=== PATIENT | female | born 1965 | race Caucasian/White ===

== ENCOUNTER 2016-10-24 01:38 | Emergency (ER) | payer OTHER ==
[2016-10-24 01:46] VITALS: TEMP 98.6
[2016-10-24] MEDS ORDERED: SODIUM CHLORIDE 0.9% 1,000 ML IV STA (02:02)
[2016-10-24] MEDS ORDERED: MORPHINE SULFATE 4 MG/ML SYRINGE IV STA (02:02)
[2016-10-24] MEDS ORDERED: ONDANSETRON 4 MG/2 ML VIAL IVP STA (02:02)
--- NOTE | 2016-10-24 02:13 | ED ---
General Adult HPI - General Chief complaint: Abdominal Pain Stated complaint: Rib/Back/Shoulder Pain Time Seen by Provider: 10/24/16 01:57 Source: patient, RN notes reviewed Mode of arrival: ambulatory Limitations: no limitations - History of Present Illness Initial comments: 51-year-old female presents emergency Department chief complaint son onset of left-sided pain. Patient states that started a few hours ago when she tried to her sleep. Patient states it's starts along her lower rib region and upper stomach on the left. Patient states that she has had some pain that radiates up and down into her abdomen. Patient states that she has some nausea but has had no episodes of vomiting. Patient states that she tries to urinate states she has no urine output. Patient denies any dysuria, fever, chills. Patient states that she had a prior hysterectomy. Patient states nothing seems to make the pain feel better or worse at this time. - Related Data Home Medications Medication Instructions Recorded Confirmed Baclofen 10 mg PO HS 08/02/14 05/20/16 Pregabalin [Lyrica] 150 mg PO BID 10/01/14 05/20/16 Butalb/Acetaminophen/Caffeine 1 - 2 each PO Q4HR 06/22/15 05/20/16 [Fioricet 50-300-40 mg Capsule] oxyCODONE-APAP 10-325MG [Percocet 1 tab PO DAILY 02/03/16 05/20/16 10-325 mg] Albuterol Inhaler [Ventolin Hfa 2 puff INHALATION RT-Q4H PRN 05/20/16 05/20/16 Inhaler] Propranolol LA [Inderal LA] 80 mg PO DAILY 05/20/16 05/20/16 Triamcinolone 0.1% Cream [Kenalog] 1 applic TOPICAL BID 05/20/16 05/20/16 Vilazodone Hydrochloride [Viibryd] 10 mg PO DAILY 05/20/16 05/20/16 Previous Rx's Medication Instructions Recorded ALPRAZolam [Xanax] 0.5 mg PO Q8HR PRN #10 tablet 10/20/14 Hydrocodone/Acetaminophen [[place] 1 each PO Q6HR PRN #20 tab 05/20/16 5-325] Allergies Allergy/AdvReac Type Severity Reaction Status Date / Time No Known Allergies Allergy Verified 10/24/16 01:45 Review of Systems ROS Statement: Those systems with pertinent positive or pertinent negative responses have been documented in the HPI. ROS Other: All systems not noted in ROS Statement are negative. Past Medical History Past Medical History: Fibromyalgia, Neurologic Disorder, Osteoarthritis (OA), Skin Disorder, Thyroid Disorder Additional Past Medical History / Comment(s): Hx Psoriasis, arthritis, MULTIPLE SCLEROSIS, VERTIGO History of Any Multi-Drug Resistant Organisms: None Reported Past Surgical History: Hysterectomy Additional Past Surgical History / Comment(s): Hx. Partial thyroidectomy Past Psychological History: Anxiety, Depression Smoking Status: Former smoker Past Alcohol Use History: None Reported Past Drug Use History: None Reported - Past Family History Mother Family Medical History: Cancer General Exam Limitations: no limitations General appearance: alert, in no apparent distress Head exam: Present: atraumatic, normocephalic, normal inspection Eye exam: Present: normal appearance, PERRL, EOMI. Absent: scleral icterus, conjunctival injection, periorbital swelling ENT exam: Present: normal exam, normal oropharynx, mucous membranes moist, TM's normal bilaterally, normal external ear exam Neck exam: Present: normal inspection, full ROM. Absent: tenderness, meningismus, lymphadenopathy Respiratory exam: Present: normal lung sounds bilaterally, chest wall tenderness. Absent: respiratory distress, wheezes, rales, rhonchi, stridor Cardiovascular Exam: Present: regular rate, normal rhythm, normal heart sounds. Absent: systolic murmur, diastolic murmur, rubs, gallop, clicks GI/Abdominal exam: Present: soft, tenderness (Mild tenderness mid abdomen, left- sided), normal bowel sounds. Absent: distended, guarding, rebound, rigid Back exam: Absent: CVA tenderness (R), CVA tenderness (L) Skin exam: Present: warm, dry, intact, normal color. Absent: rash Course Vital Signs 10/24/16 10/24/16 01:43 03:13 Temperature 98.6 F Pulse Rate 82 73 Respiratory 20 18 Rate Blood Pressure 111/63 111/58 O2 Sat by Pulse 98 100 Oximetry Medical Decision Making - Medical Decision Making 51-year-old female presents emergency department for left-sided abdominal pain. Patient CT of the chest abdomen pelvis shows constipation. She does have some emphysematous type changes and enteritis type changes. Patient states that she's been trying to eat more healthy eating try seeds and increase fiber. She states that she only has small brown formed stool. Patient states that she knew she was constipated is correlated on CT. - Lab Data Result diagrams: 10/24/16 02:15 10/24/16 02:15 Lab Results 10/24/16 10/24/16 10/24/16 Range/Units 02:15 02:15 02:15 WBC 8.5 (3.8-10.6) k/uL RBC 4.20 (3.80-5.40) m/uL Hgb 13.0 (11.4-16.0) gm/dL Hct 40.2 (34.0-46.0) % MCV 95.7 (80.0-100.0) fL MCH 31.0 (25.0-35.0) pg MCHC 32.4 (31.0-37.0) g/dL RDW 12.3 (11.5-15.5) % Plt Count 249 (150-450) k/uL Neutrophils % 80 % Lymphocytes % 12 % Monocytes % 5 % Eosinophils % 2 % Basophils % 1 % Neutrophils # 6.8 (1.3-7.7) k/uL Lymphocytes # 1.0 (1.0-4.8) k/uL Monocytes # 0.4 (0-1.0) k/uL Eosinophils # 0.1 (0-0.7) k/uL Basophils # 0.0 (0-0.2) k/uL Sodium 141 (137-145) mmol/L Potassium 4.1 (3.5-5.1) mmol/L Chloride 104 (98-107) mmol/L Carbon Dioxide 26 (22-30) mmol/L Anion Gap 11 mmol/L BUN 15 (7-17) mg/dL Creatinine 0.60 (0.52-1.04) mg/dL Est GFR (MDRD) Af Amer >60 (>60 ml/min/1.73 sqM) Est GFR (MDRD) Non-Af >60 (>60 ml/min/1.73 sqM) Glucose 96 (74-99) mg/dL Calcium 9.2 (8.4-10.2) mg/dL Total Bilirubin 0.4 (0.2-1.3) mg/dL AST 29 (14-36) U/L ALT 54 H (9-52) U/L Alkaline Phosphatase 99 (38-126) U/L Troponin I <0.012 (0.000-0.034) ng/mL Total Protein 6.9 (6.3-8.2) g/dL Albumin 4.1 (3.5-5.0) g/dL Amylase 56 (30-110) U/L Lipase 207 (23-300) U/L Urine Color Urine Appearance (Clear) Urine pH (5.0-8.0) Ur Specific [place] (1.001-1.035) Urine Protein (Negative) Urine Glucose (UA) (Negative) Urine Ketones (Negative) Urine Blood (Negative) Urine Nitrate (Negative) Urine Bilirubin (Negative) Urine Urobilinogen (<2.0) mg/dL Ur Leukocyte Esterase (Negative) Urine RBC (0-5) /hpf Urine WBC (0-5) /hpf Ur Squamous Epith Cells (0-4) /hpf Urine Bacteria (None) /hpf Urine Mucus (None) /hpf 10/24/16 Range/Units 02:15 WBC (3.8-10.6) k/uL RBC (3.80-5.40) m/uL Hgb (11.4-16.0) gm/dL Hct (34.0-46.0) % MCV (80.0-100.0) fL MCH (25.0-35.0) pg MCHC (31.0-37.0) g/dL RDW (11.5-15.5) % Plt Count (150-450) k/uL Neutrophils % % Lymphocytes % % Monocytes % % Eosinophils % % Basophils % % Neutrophils # (1.3-7.7) k/uL Lymphocytes # (1.0-4.8) k/uL Monocytes # (0-1.0) k/uL Eosinophils # (0-0.7) k/uL Basophils # (0-0.2) k/uL Sodium (137-145) mmol/L Potassium (3.5-5.1) mmol/L Chloride (98-107) mmol/L Carbon Dioxide (22-30) mmol/L Anion Gap mmol/L BUN (7-17) mg/dL Creatinine (0.52-1.04) mg/dL Est GFR (MDRD) Af Amer (>60 ml/min/1.73 sqM) Est GFR (MDRD) Non-Af (>60 ml/min/1.73 sqM) Glucose (74-99) mg/dL Calcium (8.4-10.2) mg/dL Total Bilirubin (0.2-1.3) mg/dL AST (14-36) U/L ALT (9-52) U/L Alkaline Phosphatase (38-126) U/L Troponin I (0.000-0.034) ng/mL Total Protein (6.3-8.2) g/dL Albumin (3.5-5.0) g/dL Amylase (30-110) U/L Lipase (23-300) U/L Urine Color Yellow Urine Appearance Cloudy H (Clear) Urine pH 6.0 (5.0-8.0) Ur Specific [place] 1.014 (1.001-1.035) Urine Protein Negative (Negative) Urine Glucose (UA) Negative (Negative) Urine Ketones Negative (Negative) Urine Blood Negative (Negative) Urine Nitrate Negative (Negative) Urine Bilirubin Negative (Negative) Urine Urobilinogen <2.0 (<2.0) mg/dL Ur Leukocyte Esterase Negative (Negative) Urine RBC 2 (0-5) /hpf Urine WBC 1 (0-5) /hpf Ur Squamous Epith Cells 4 (0-4) /hpf Urine Bacteria Few H (None) /hpf Urine Mucus Rare H (None) /hpf Disposition Clinical Impression: Abdominal pain, Constipation Disposition: HOME SELF-CARE Condition: Stable Instructions: Constipation (ED) Additional Instructions: Please return to the Emergency Department if symptoms worsen or any other concerns. Time of Disposition: 04:11
[2016-10-24 02:23] LABS: Basophils % (A) 1 %; CH 32.4; Eosinophils # (A) 0.1 k/uL (0-0.7); Eosinophils % (A) 2 %; HCT 40.2 % (34.0-46.0); Luc # (Auto) 0.09; Luc % (Auto) 1; Lymphocytes % (A) 12 %; MCHC 32.4 g/dL (31.0-37.0); MCV 95.7 fL (80.0-100.0); Mean Platelet Volume 7.2; Monocytes # (A) 0.4 k/uL (0-1.0); Monocytes % (A) 5 %; Neutrophils # (A) 6.8 k/uL (1.3-7.7); Neutrophils % (A) 80 %; RDW 12.3 % (11.5-15.5); WBC 8.5 k/uL (3.8-10.6); WBC (Perox) 8.93
[2016-10-24 02:24] LABS: Appearance,Urine Cloudy (Clear); Bacteria,Urine Few /hpf; Bilirubin,Urine Negative (Negative); Glucose,Urine (UA) Negative (Negative); Ketones,Urine Negative (Negative); Leukocyte Esterase,Urine Negative (Negative); Mucus,Urine Rare /hpf; Nitrite,Urine Negative (Negative); Particle Count 2454; Protein,Urine Negative (Negative); RBC,Urine 2 /hpf (0-5); Specific Gravity,Urine 1.014 (1.001-1.035); Squamous Epithelial Cell,Urine 4 /hpf (0-4); UA Billing (MACRO vs. MICRO) MICRO; Urobilinogen,Urine <2.0 mg/dL (<2.0); WBC,Urine 1 /hpf (0-5)
[2016-10-24 02:31] LABS: ALT 54 U/L (9-52); AST 29 U/L (14-36); Alkaline Phosphatase 99 U/L (38-126); Amylase 56 U/L (30-110); Anion Gap 11 mmol/L; Blood Urea Nitrogen 15 mg/dL (7-17); Calcium 9.2 mg/dL (8.4-10.2); Carbon Dioxide 26 mmol/L (22-30); Chloride 104 mmol/L (98-107); Glucose 96 mg/dL (74-99); Non-African American GFR(MDRD) >60 (>60 ml/min/1.73 sqM); Potassium 4.1 mmol/L (3.5-5.1); Sodium 141 mmol/L (137-145); Total Bilirubin 0.4 mg/dL (0.2-1.3); Total Protein 6.9 g/dL (6.3-8.2)
[2016-10-24] MEDS ORDERED: RX INFO: IV CONTRAST WAS GIVEN 1 EACH MISC MISCELLANE PRN (02:48)
[2016-10-24] MEDS ORDERED: KETOROLAC 30 MG/ML 1 ML VIAL IVP STA (02:50)
--- NOTE | 2016-10-24 03:08 | XR ---
EXAMINATION TYPE: XR chest 2V DATE OF EXAM: 10/24/2016 2:34 AM COMPARISON: 10/20/2014 HISTORY: Abdominal pain history of hysterectomy abdominal and chest and back pain. TECHNIQUE: Frontal and lateral views of the chest are obtained. FINDINGS: There is no focal air space opacity, pleural effusion, or pneumothorax seen. The cardiac silhouette size is within normal limits. The osseous structures are intact. IMPRESSION: 1. No acute cardiopulmonary process. 2. No significant interval change.
--- NOTE | 2016-10-24 03:10 | XR ---
EXAMINATION TYPE: XR KUB DATE OF EXAM: 10/24/2016 2:34 AM CLINICAL HISTORY: Hysterectomy, abdominal and chest and back pain TECHNIQUE: 2 upright radiographs of abdomen were obtained in frontal projection. COMPARISON: 02/03/2016 FINDINGS: Scattered gas is seen in non-distended small bowel loops. Moderate fecal material is noted in the colon. There is no visceromegaly, pneumoperitoneum, or abnormal calcification appreciated. The lung bases are clear and the osseous structures are intact. IMPRESSION: Moderate amount of fecal material is noted in the colon. Overall nonobstructive bowel gas pattern.
[2016-10-24 03:14] VITALS: RESP 18
--- NOTE | 2016-10-24 03:55 | CT ---
EXAMINATION TYPE: CT angio chest DATE OF EXAM: 10/24/2016 3:12 AM COMPARISON: NONE HISTORY: Left sided chest abdominal pain CT DLP: 530.30 mGycm Automated exposure control for dose reduction was used. CONTRAST: CTA scan of the thorax is performed with IV Contrast, patient injected with 100 mL of Omnipaque 350, pulmonary embolism protocol. . FINDINGS: PULMONARY ARTERIES: There is slightly limited opacification of peripheral pulmonary arterial branches and also central pulmonary arterial branches with contrast with multiple artifacts. No significant f illing defects are noted in the main pulmonary arteries and central branches to represent acute pulmo nary embolism. LUNGS: Mild bibasal lung atelectatic changes are noted. No definite focal pneumonia is noted. Mild em physematous changes are present in the lungs. There is no pleural effusion or pneumothorax seen. The tracheobronchial tree is patent. MEDIASTINUM: . There are no greater than 1 cm hilar or mediastinal lymph nodes. No pericardial eff usion is seen. Mild atherosclerotic calcification is noted in the aortic arch. No significant ectatic changes are noted in the thoracic aorta. OTHER: No additional significant abnormality is seen. IMPRESSION: NO DEFINITE EVIDENCE OF ACUTE PULMONARY EMBOLISM IN THIS SLIGHTLY LIMITED STUDY. Mild bibasilar lung atelectasis. Mild emphysematous changes in the lungs. No focal lung consolidation .
--- NOTE | 2016-10-24 04:06 | CT ---
EXAMINATION TYPE: CT abdomen pelvis w con DATE OF EXAM: 10/24/2016 3:46 AM COMPARISON: NONE HISTORY: Left sided chest and abdominal pain CT DLP: 530.30 mGycm Automated exposure control for dose reduction was used. TECHNIQUE: Helical acquisition of images was performed from the lung bases through the pelvis. CONTRAST: Performed without Oral Contrast and with IV Contrast, patient injected with 100 mL of Omnipaque 350. FINDINGS: LUNG BASES: Mild basilar lung atelectasis is noted bilaterally. LIVER/GB: No significant abnormality is appreciated. PANCREAS: No significant abnormality is seen. SPLEEN: No significant abnormality is seen. ADRENALS: No significant abnormality is seen. KIDNEYS: No significant abnormality is seen. RETROPERITONEAL ADENOPATHY: None visualized Mild atherosclerotic calcification is noted in the abdominal aorta. REPRODUCTIVE ORGANS: Uterus is not well visualized. Uterus is probably surgically absent. Cystic bruce ges are noted in bilateral ovaries. There is 2.3 cm cyst in the right ovary and 2.4 cm cyst in the le ft ovary. URINARY BLADDER: No significant abnormality is seen. PELVIC ADENOPATHY: None visualized. OSSEOUS STRUCTURES: No significant abnormality is seen. BOWEL: Visualized appendix appears grossly unremarkable in the axial image 68 and coronal image 32. Stomach appears grossly unremarkable. Small bowel loops showed mild fluid distention with possible mi ld ileus and enteritis changes. Moderate to large amount of fecal material is noted in the colon and rectum and patient is constipate d. OTHER: IMPRESSION: 1. NO SIGNIFICANT ACUTE ABNORMALITY IS NOTED IN THE ABDOMEN AND PELVIS. 2. BILATERAL OVARIAN CYSTS. AN ULTRASOUND STUDY WOULD BE HELPFUL IF CLINICALLY INDICATED. UTERUS IS P ROBABLY SURGICALLY ABSENT. 3. POSSIBLE ENTERITIS CHANGES WITH ILEUS IN THE SMALL BOWEL LOOPS. 4. PATIENT IS CONSTIPATED. 5. APPENDIX SHOWED NO SIGNIFICANT INFLAMMATION.
[2016-10-24] MEDS ORDERED: MAGNESIUM CITRATE 296 ML BOTTLE PO ONE (04:11)
[2016-10-24 04:20] VITALS: BP 108/57; PULSE 71
== END 2016-10-24 04:19 | disposition home or self-care (01) ==
LOC: EC 01:38
DX: K59.00 Constipation, unspecified (principal); G35 Multiple sclerosis; M79.7 Fibromyalgia; M19.90 Unspecified osteoarthritis, unspecified site; L40.9 Psoriasis, unspecified; F32.9 Major depressive disorder, single episode, unspecified; F41.9 Anxiety disorder, unspecified; Z79.891 Long term (current) use of opiate analgesic; Z79.899 Other long term (current) drug therapy; Z87.891 Personal history of nicotine dependence
CPT/HCPCS: 36415; 80053; 82150; 83690; 84484; 85025; 81001; 71020; 74000; 71275; 74177; 99284; 96374; 96375 ×2; 96361; J2270; Q9967; J2405; J1885

== ENCOUNTER → 2018-03-02 | Outpatient (CLI) | payer OTHER ==
[2018-03-02 17:38] LABS: Basophils % (A) 0 %; Eosinophils % (A) 0 %; HCT 39.4 % (34.0-46.0); HGB 13.1 gm/dL (11.4-16.0); Lymphocytes # (A) 1.3 k/uL (1.0-4.8); Lymphocytes % (A) 17 %; MCHC 33.4 g/dL (31.0-37.0); Mean Platelet Volume 7.3; Monocytes # (A) 0.4 k/uL (0-1.0); Monocytes % (A) 5 %; Neutrophils # (A) 5.6 k/uL (1.3-7.7); Neutrophils % (A) 76 %; Platelet Count 232 k/uL (150-450); RBC 4.24 m/uL (3.80-5.40); RDW 12.8 % (11.5-15.5); WBC 7.4 k/uL (3.8-10.6)
[2018-03-02 17:45] LABS: ALT 29 U/L (9-52); AST 22 U/L (14-36); Albumin 4.6 g/dL (3.5-5.0); Alkaline Phosphatase 73 U/L (38-126); Anion Gap 17 mmol/L; Blood Urea Nitrogen 19 mg/dL (7-17); Calcium 9.5 mg/dL (8.4-10.2); Carbon Dioxide 26 mmol/L (22-30); Chloride 103 mmol/L (98-107); Glucose 92 mg/dL (74-99); Potassium 3.7 mmol/L (3.5-5.1); Sodium 146 mmol/L (137-145); Total Bilirubin 0.2 mg/dL (0.2-1.3); Total Protein 7.1 g/dL (6.3-8.2)
[2018-03-03 01:03] LABS: Vitamin D 25 Hydroxy 20.3 ng/mL (30.0-100.0)
== END | disposition home or self-care (01) ==
LOC: LABWHC1 16:42
PROVIDERS: ATTEND Nurse Practitioner Acute Care
DX: E55.9 Vitamin D deficiency, unspecified (principal); E03.9 Hypothyroidism, unspecified; R53.82 Chronic fatigue, unspecified; Z51.81 Encounter for therapeutic drug level monitoring
CPT/HCPCS: 36415; 80053; 82306; 82607; 84439; 84443; 84481; 85025

== ENCOUNTER → 2018-03-21 | Outpatient (CLI) | payer MEDICARE, OTHER ==
--- NOTE | 2018-03-23 01:09 | MR ---
EXAMINATION TYPE: MR brain/cspine wo/w DATE OF EXAM: 03/21/2018 COMPARISON: 06/09/2015 and 10/21/2014 HISTORY: MS, compare to prior brain 06-09-15, cervical 10-21-14 TECHNIQUE: Multiplanar, multisequence images of the brain and brainstem and cervical spine is performed without and with IV contrast, utilizing 6.5 mL intravenous Gadavist . FINDINGS: On the T2 and FLAIR images there is extensive nodular increased signal in the periventricular and jux tacortical white matter. These measure up to 14 mm and total number is more than 20. There is thinnin g of the corpus callosum. There is no midline shift. There is no sign of intracranial hemorrhage. The re is no evidence of cortical infarct. There is a 5 mm area of slight increased signal also in the br ainstem at the level of the cerebral peduncles in the midline. There is subtle increased signal also bilaterally in the catarino. Cerebellum appears fairly normal. The contrast images show no pathologic enh ancement in the brain. The cervical vertebra have normal alignment. Disc spaces are fairly normal. There are mild posterior cervical disc herniations at C5-6 C6-7. There is no significant spinal stenosis. There is no compress ion fracture. Posterior elements are intact. There is a possible subtle area of increased signal in t he cervical cord at the C3-4 level in the midline on the T2 images. There is no significant spinal st enosis. Spinal canal measures 9 mm at C6-7. There is mild cerebral cortical atrophy. There is no path ologic cord enhancement. IMPRESSION: There are posterior disc herniations at C5-6 C6-7. C6-7 disc herniation is increased comp ared to old exam. No spinal stenosis. Subtle small focus of increased signal in the cord at C3-4 coul d be a focus of new demyelinating disease. There is extensive patchy increased signal in the periventricular white matter consistent with demyel inating disease that is similar to old exam. I do not see a significant change. There is some patchy increased signal in the brainstem in the lower catarino on the right side and left side on the old exam t hat is less obvious on today's exam. There is also focus at the level of cerebral peduncles unchanged .
== END | disposition home or self-care (01) ==
LOC: RADMRIMAIN 07:10
PROVIDERS: ATTEND Psychiatry & Neurology Neurology
DX: M50.222 Other cervical disc displacement at C5-C6 level (principal); R90.82 White matter disease, unspecified; R90.89 Other abnormal findings on diagnostic imaging of central nervous system; G35 Multiple sclerosis
CPT/HCPCS: 70553; 72156; A9581

== ENCOUNTER 2018-05-12 20:01 | Emergency (ER) | payer MEDICARE, OTHER ==
[2018-05-12] MEDS ORDERED: SODIUM CHLORIDE 0.9% 1,000 ML IV STA (20:03)
[2018-05-12 20:07] VITALS: RESP 16
--- NOTE | 2018-05-12 20:18 | ED ---
General Adult HPI - General Chief complaint: Syncope Stated complaint: Syncope Time Seen by Provider: 05/12/18 20:03 Source: patient, EMS, RN notes reviewed, old records reviewed Mode of arrival: EMS - History of Present Illness Initial comments: 52-year-old female presents with syncopal episode. Patient states that she was walking towards gas station, began feeling lightheaded, and passed out. She was unconscious only momentarily. She did hit her head when she fell. She states that approximately 20 minutes before this episode she had smoked some marijuana. She also reports that throughout the day today she has not had much to eat or drink. She was in the hospital with her until the reporting coordinator hours. She has not stayed hydrated throughout the day. Denies any preceding chest pain or palpitations. Denies abdominal pain. Denies nausea vomiting or diarrhea. Denies fever. Past medical history of fibromyalgia, MS. - Related Data Home Medications Medication Instructions Recorded Confirmed Baclofen 10 mg PO HS 08/02/14 05/12/18 oxyCODONE-APAP 10-325MG [Percocet 1 tab PO DAILY PRN 02/03/16 05/12/18 10-325 mg] Propranolol LA [Inderal LA] 80 mg PO DAILY 05/20/16 05/12/18 Vilazodone HCl [Viibryd] 10 mg PO DAILY 05/20/16 05/12/18 Pregabalin [Lyrica] 150 mg PO BID 05/12/18 05/12/18 Allergies Allergy/AdvReac Type Severity Reaction Status Date / Time No Known Allergies Allergy Verified 05/12/18 20:18 Review of Systems ROS Statement: Those systems with pertinent positive or pertinent negative responses have been documented in the HPI. ROS Other: All systems not noted in ROS Statement are negative. Past Medical History Past Medical History: Fibromyalgia, Neurologic Disorder, Osteoarthritis (OA), Skin Disorder, Thyroid Disorder Additional Past Medical History / Comment(s): Hx Psoriasis, arthritis, MULTIPLE SCLEROSIS, VERTIGO History of Any Multi-Drug Resistant Organisms: None Reported Past Surgical History: Hysterectomy Additional Past Surgical History / Comment(s): Hx. Partial thyroidectomy Past Psychological History: Anxiety, Depression Smoking Status: Current every day smoker Past Alcohol Use History: None Reported Past Drug Use History: Marijuana - Past Family History Mother Family Medical History: Cancer General Exam General appearance: alert, in no apparent distress Head exam: Present: atraumatic, normocephalic Eye exam: Present: normal appearance, PERRL, EOMI ENT exam: Present: mucous membranes dry Neck exam: Present: normal inspection. Absent: tenderness, meningismus Respiratory exam: Present: normal lung sounds bilaterally. Absent: respiratory distress, wheezes Cardiovascular Exam: Present: regular rate, normal rhythm GI/Abdominal exam: Present: soft. Absent: distended, tenderness Extremities exam: Present: normal inspection, full ROM, normal capillary refill. Absent: pedal edema Neurological exam: Present: alert, oriented X3, CN II-XII intact. Absent: motor sensory deficit Psychiatric exam: Present: normal affect, normal mood Skin exam: Present: warm, dry, intact. Absent: cyanosis, diaphoretic Course Vital Signs 05/12/18 05/12/18 05/12/18 20:02 20:15 21:06 Pulse Rate 70 76 64 Respiratory 16 16 Rate Blood Pressure 67/47 77/59 80/58 O2 Sat by Pulse 100 100 Oximetry 05/12/18 22:04 Pulse Rate 58 L Respiratory 16 Rate Blood Pressure 95/58 O2 Sat by Pulse 100 Oximetry EKG Findings - EKG Comments: EKG Findings:: EKG: Normal sinus rhythm, possible left atrial enlargement, rate of 72, FL interval 156, QRS duration 86, QTC [address] segment elevation or depression Medical Decision Making - Medical Decision Making 52-year-old female presenting with syncopal episode. There was head trauma. Syncope is likely related to dehydration as the patient has not been eating or drinking throughout the day today. She also did admit to smoking some marijuana 15-20 minutes prior to this episode. Imaging is obtained including chest x-ray which is negative for any acute cardiopulmonary disease, head CT which is negative for intracranial hemorrhage or mass effect this was ordered secondary to head trauma. CBC, CMP are within normal limits. Urinalysis does show trace ketones which is consistent with dehydration. After 2 L of normal saline, patient's blood pressure is improved. She is feeling much better. Patient is offered observation for continued IV hydration, she declines. She prefers to be discharged. She will continue to maintain oral hydration at home. She will return with any worsening or changing symptoms. - Lab Data Result diagrams: 05/12/18 20:14 05/12/18 20:14 Lab Results 08/05/12/18 05/12/18 Range/Units 20:14 20:14 20:14 WBC 5.1 (3.8-10.6) k/uL RBC 4.05 (3.80-5.40) m/uL Hgb 12.8 (11.4-16.0) gm/dL Hct 38.1 (34.0-46.0) % MCV 94.2 (80.0-100.0) fL MCH 31.7 (25.0-35.0) pg MCHC 33.6 (31.0-37.0) g/dL RDW 12.8 (11.5-15.5) % Plt Count 261 (150-450) k/uL Neutrophils % 55 % Lymphocytes % 33 % Monocytes % 8 % Eosinophils % 2 % Basophils % 1 % Neutrophils # 2.8 (1.3-7.7) k/uL Lymphocytes # 1.7 (1.0-4.8) k/uL Monocytes # 0.4 (0-1.0) k/uL Eosinophils # 0.1 (0-0.7) k/uL Basophils # 0.0 (0-0.2) k/uL PT (9.0-12.0) sec INR (<1.2) APTT (22.0-30.0) sec Sodium 141 (137-145) mmol/L Potassium 3.6 (3.5-5.1) mmol/L Chloride 110 H (98-107) mmol/L Carbon Dioxide 23 (22-30) mmol/L Anion Gap 8 mmol/L BUN 15 (7-17) mg/dL Creatinine 0.70 (0.52-1.04) mg/dL Est GFR (CKD-EPI)AfAm >90 (>60 ml/min/1.73 sqM) Est GFR (CKD-EPI)NonAf >90 (>60 ml/min/1.73 sqM) Glucose 79 (74-99) mg/dL Calcium 9.1 (8.4-10.2) mg/dL Magnesium 2.2 (1.6-2.3) mg/dL Total Bilirubin 0.2 (0.2-1.3) mg/dL AST 20 (14-36) U/L ALT 24 (9-52) U/L Alkaline Phosphatase 73 (38-126) U/L Total Creatine Kinase 23 L (30-135) U/L CK-MB (CK-2) 0.2 (0.0-2.4) ng/mL CK-MB (CK-2) Rel Index 0.9 Troponin I <0.012 (0.000-0.034) ng/mL Total Protein 7.0 (6.3-8.2) g/dL Albumin 4.4 (3.5-5.0) g/dL Urine Color Urine Appearance (Clear) Urine pH (5.0-8.0) Ur Specific [place] (1.001-1.035) Urine Protein (Negative) Urine Glucose (UA) (Negative) Urine Ketones (Negative) Urine Blood (Negative) Urine Nitrite (Negative) Urine Bilirubin (Negative) Urine Urobilinogen (<2.0) mg/dL Ur Leukocyte Esterase (Negative) Urine RBC (0-5) /hpf Urine WBC (0-5) /hpf Ur Squamous Epith Cells (0-4) /hpf Amorphous Sediment (None) /hpf Hyaline Casts (0-2) /lpf Urine Mucus (None) /hpf Urine Opiates Screen (NotDetected) Ur Oxycodone Screen (NotDetected) Urine Methadone Screen (NotDetected) Ur Propoxyphene Screen (NotDetected) Ur Barbiturates Screen (NotDetected) U Tricyclic Antidepress (NotDetected) Ur Phencyclidine Scrn (NotDetected) Ur Amphetamines Screen (NotDetected) U Methamphetamines Scrn (NotDetected) U Benzodiazepines Scrn (NotDetected) Urine Cocaine Screen (NotDetected) U Marijuana (THC) Screen (NotDetected) Serum Alcohol <10 mg/dL 05/12/18 05/12/18 Range/Units 20:14 20:26 WBC (3.8-10.6) k/uL RBC (3.80-5.40) m/uL Hgb (11.4-16.0) gm/dL Hct (34.0-46.0) % MCV (80.0-100.0) fL MCH (25.0-35.0) pg MCHC (31.0-37.0) g/dL RDW (11.5-15.5) % Plt Count (150-450) k/uL Neutrophils % % Lymphocytes % % Monocytes % % Eosinophils % % Basophils % % Neutrophils # (1.3-7.7) k/uL Lymphocytes # (1.0-4.8) k/uL Monocytes # (0-1.0) k/uL Eosinophils # (0-0.7) k/uL Basophils # (0-0.2) k/uL PT 9.8 (9.0-12.0) sec INR 1.0 (<1.2) APTT 22.1 (22.0-30.0) sec Sodium (137-145) mmol/L Potassium (3.5-5.1) mmol/L Chloride (98-107) mmol/L Carbon Dioxide (22-30) mmol/L Anion Gap mmol/L BUN (7-17) mg/dL Creatinine (0.52-1.04) mg/dL Est GFR (CKD-EPI)AfAm (>60 ml/min/1.73 sqM) Est GFR (CKD-EPI)NonAf (>60 ml/min/1.73 sqM) Glucose (74-99) mg/dL Calcium (8.4-10.2) mg/dL Magnesium (1.6-2.3) mg/dL Total Bilirubin (0.2-1.3) mg/dL AST (14-36) U/L ALT (9-52) U/L Alkaline Phosphatase (38-126) U/L Total Creatine Kinase (30-135) U/L CK-MB (CK-2) (0.0-2.4) ng/mL CK-MB (CK-2) Rel Index Troponin I (0.000-0.034) ng/mL Total Protein (6.3-8.2) g/dL Albumin (3.5-5.0) g/dL Urine Color Yellow Urine Appearance Cloudy H (Clear) Urine pH 5.5 (5.0-8.0) Ur Specific [place] 1.013 (1.001-1.035) Urine Protein Trace H (Negative) Urine Glucose (UA) Negative (Negative) Urine Ketones Trace H (Negative) Urine Blood Negative (Negative) Urine Nitrite Negative (Negative) Urine Bilirubin Negative (Negative) Urine Urobilinogen <2.0 (<2.0) mg/dL Ur Leukocyte Esterase Trace H (Negative) Urine RBC 2 (0-5) /hpf Urine WBC 4 (0-5) /hpf Ur Squamous Epith Cells 5 H (0-4) /hpf Amorphous Sediment Rare H (None) /hpf Hyaline Casts 2 (0-2) /lpf Urine Mucus Many H (None) /hpf Urine Opiates Screen Not Detected (NotDetected) Ur Oxycodone Screen Not Detected (NotDetected) Urine Methadone Screen Not Detected (NotDetected) Ur Propoxyphene Screen Not Detected (NotDetected) Ur Barbiturates Screen Not Detected (NotDetected) U Tricyclic Antidepress Detected H (NotDetected) Ur Phencyclidine Scrn Not Detected (NotDetected) Ur Amphetamines Screen Not Detected (NotDetected) U Methamphetamines Scrn Not Detected (NotDetected) U Benzodiazepines Scrn Not Detected (NotDetected) Urine Cocaine Screen Not Detected (NotDetected) U Marijuana (THC) Screen Not Detected (NotDetected) Serum Alcohol mg/dL Disposition Clinical Impression: Syncope due to orthostatic hypotension, Dehydration Disposition: HOME SELF-CARE Condition: Good Instructions: Syncope (ED), Dehydration (ED) Is patient prescribed a controlled substance at d/c from ED?: No Referrals: Boston Valentine DO [Primary Care Provider] - 1-2 days Time of Disposition: 22:31
[2018-05-12 20:24] LABS: Basophils % (A) 1 %; Eosinophils # (A) 0.1 k/uL (0-0.7); Eosinophils % (A) 2 %; HCT 38.1 % (34.0-46.0); HGB 12.8 gm/dL (11.4-16.0); Lymphocytes # (A) 1.7 k/uL (1.0-4.8); Lymphocytes % (A) 33 %; MCH 31.7 pg (25.0-35.0); MCHC 33.6 g/dL (31.0-37.0); MCV 94.2 fL (80.0-100.0); Mean Platelet Volume 7.3; Monocytes # (A) 0.4 k/uL (0-1.0); Monocytes % (A) 8 %; Neutrophils # (A) 2.8 k/uL (1.3-7.7); Neutrophils % (A) 55 %; Platelet Count 261 k/uL (150-450); RBC 4.05 m/uL (3.80-5.40); RDW 12.8 % (11.5-15.5); WBC 5.1 k/uL (3.8-10.6)
[2018-05-12 20:32] LABS: Partial Thromboplastin Time 22.1 sec (22.0-30.0); Prothrombin Time 9.8 sec (9.0-12.0)
[2018-05-12 20:33] LABS: ALT 24 U/L (9-52); AST 20 U/L (14-36); Albumin 4.4 g/dL (3.5-5.0); Alcohol <10 mg/dL; Alkaline Phosphatase 73 U/L (38-126); Anion Gap 8 mmol/L; Blood Urea Nitrogen 15 mg/dL (7-17); Calcium 9.1 mg/dL (8.4-10.2); Carbon Dioxide 23 mmol/L (22-30); Chloride 110 mmol/L (98-107); Glucose 79 mg/dL (74-99); Magnesium 2.2 mg/dL (1.6-2.3); Potassium 3.6 mmol/L (3.5-5.1); Sodium 141 mmol/L (137-145); Total Bilirubin 0.2 mg/dL (0.2-1.3)
[2018-05-12 20:36] LABS: Creatine Kinase 23 U/L (30-135)
[2018-05-12 20:39] LABS: Amorphous Sediment,Urine Rare /hpf; Appearance,Urine Cloudy (Clear); Bilirubin,Urine Negative (Negative); Blood,Urine Negative (Negative); Color,Urine Yellow; Glucose,Urine (UA) Negative (Negative); Hyaline Casts,Urine 2 /lpf (0-2); Ketones,Urine Trace (Negative); Leukocyte Esterase,Urine Trace (Negative); Mucus,Urine Many /hpf; Nitrite,Urine Negative (Negative); PH, Urine 5.5 (5.0-8.0); Protein,Urine Trace (Negative); RBC,Urine 2 /hpf (0-5); Specific Gravity,Urine 1.013 (1.001-1.035); Squamous Epithelial Cell,Urine 5 /hpf (0-4); Urobilinogen,Urine <2.0 mg/dL (<2.0); WBC,Urine 4 /hpf (0-5)
[2018-05-12 20:49] LABS: Creatine Kinase MB 0.2 ng/mL (0.0-2.4); Troponin I <0.012 ng/mL (0.000-0.034)
[2018-05-12 20:50] LABS: Amphetamine Screen,Urine Not Detected (NotDetected); Barbiturate Screen,Urine Not Detected (NotDetected); Benzodiazepines Screen,Urine Not Detected (NotDetected); Cocaine Screen,Urine Not Detected (NotDetected); Methadone Screen, Urine Not Detected (NotDetected); Opiate Screen,Urine Not Detected (NotDetected); Oxycodone Screen, Urine Not Detected (NotDetected); Phencyclidine Screen,Urine Not Detected (NotDetected); Tricyclic Antidepressant,Urine Detected (NotDetected); Urn Cannabinoid Scrn Not Detected (NotDetected)
[2018-05-12] MEDS ORDERED: SODIUM CHLORIDE 0.9% 1,000 ML IV ONE (20:55)
--- NOTE | 2018-05-12 21:34 | XR ---
EXAMINATION: XR chest 2V DATE AND TIME: 05/12/2018 8:58 PM ORDERING PROVIDER: Iker Ngo MD CLINICAL INDICATION: syncope TECHNIQUE: PA and lateral COMPARISON: 217 DESCRIPTION: The lungs are clear. The pleural spaces are negative. The cardiac silhouette is not enlarged. The mediastinal and pleural silhouettes are unremarkable. The skeletal structures are intact without focal findings. The soft tissues are unremarkable. IMPRESSION: NO ACUTE PROCESS.
--- NOTE | 2018-05-12 21:37 | CT ---
EXAMINATION TYPE: CT brain cheryl prado con DATE OF EXAM: 05/12/2018 COMPARISON: 11/04/2013 HISTORY: syncope CT DLP: 1052.5 mGycm Automated exposure control for dose reduction was used. TECHNIQUE: CT scan of the head and cervical spine are performed without contrast. FINDINGS: There is no acute intracranial hemorrhage, mass effect, or midline shift identified. The ventricles and sulci are within normal limits in size. The globes are intact and the visualized sin uses are clear. Cervical spine is visualized in its entirety from C1 through upper thoracic levels and demonstrates s atisfactory alignment without evidence of acute fracture or dislocation. Prevertebral soft tissue ap pears within normal limits. The C1-C2 articulation is unremarkable. IMPRESSION: 1. There is no acute fracture or dislocation evident in the cervical spine. 2. No acute intracranial hemorrhage, mass effect, or midline shift is seen.
[2018-05-12 23:23] VITALS: BP 92/53; PULSE 68; TEMP 97.5
== END 2018-05-12 23:30 | disposition home or self-care (01) ==
LOC: EC 20:01
DX: I95.1 Orthostatic hypotension (principal); E86.0 Dehydration; F12.90 Cannabis use, unspecified, uncomplicated; M79.7 Fibromyalgia; F32.9 Major depressive disorder, single episode, unspecified; F41.9 Anxiety disorder, unspecified; F17.200 Nicotine dependence, unspecified, uncomplicated; Z79.899 Other long term (current) drug therapy; Z53.29 Procedure and treatment not carried out because of patient's decision for other reasons
CPT/HCPCS: 36415; 70450; 71046; 72125; 80053; 80306; 80320; 81001; 82550; 82553; 83735; 84484; 85025; 85610; 85730; 93005; 96360; 96361; 99285

== ENCOUNTER → 2018-05-21 | Outpatient (CLI) | payer MEDICARE, OTHER ==
[2018-05-21 10:52] LABS: Basophils % (A) 1 %; Eosinophils # (A) 0.1 k/uL (0-0.7); RDW 12.8 % (11.5-15.5)
[2018-05-21 11:04] LABS: ALT 21 U/L (9-52); AST 18 U/L (14-36); Albumin 4.2 g/dL (3.5-5.0); Alkaline Phosphatase 92 U/L (38-126); Anion Gap 7 mmol/L; Blood Urea Nitrogen 17 mg/dL (7-17); Calcium 8.9 mg/dL (8.4-10.2); Carbon Dioxide 29 mmol/L (22-30); Chloride 106 mmol/L (98-107); Glucose 81 mg/dL (74-99); Potassium 4.1 mmol/L (3.5-5.1); Sodium 142 mmol/L (137-145); Total Bilirubin 0.2 mg/dL (0.2-1.3)
[2018-05-21 11:05] LABS: Eosinophils % (A) 2 %; HCT 41.1 % (34.0-46.0); HGB 12.8 gm/dL (11.4-16.0); Lymphocytes # (A) 1.1 k/uL (1.0-4.8); Lymphocytes % (A) 16 %; MCH 30.8 pg (25.0-35.0); MCHC 31.2 g/dL (31.0-37.0); MCV 98.9 fL (80.0-100.0); Mean Platelet Volume 7.2; Monocytes # (A) 0.3 k/uL (0-1.0); Monocytes % (A) 5 %; Neutrophils % (A) 76 %; Platelet Count 231 k/uL (150-450); RBC 4.15 m/uL (3.80-5.40); WBC 6.5 k/uL (3.8-10.6)
[2018-05-21 20:55] LABS: Vitamin D 25 Hydroxy 52.4 ng/mL (30.0-100.0)
== END | disposition home or self-care (01) ==
LOC: LABWHC1 10:22
PROVIDERS: ATTEND Nurse Practitioner Acute Care
DX: G35 Multiple sclerosis (principal)
CPT/HCPCS: 36415; 80053; 82306; 82607; 85025

== ENCOUNTER 2018-05-23 16:13 | Emergency (ER) | payer MEDICARE, OTHER ==
[2018-05-23 16:45] VITALS: RESP 18
[2018-05-23] MEDS ORDERED: SODIUM CHLORIDE 0.9% 1,000 ML IV STA (17:37)
[2018-05-23] MEDS ORDERED: KETOROLAC 30 MG/ML 1 ML VIAL IVP STA (17:37)
[2018-05-23] MEDS ORDERED: METHOCARBAMOL 750 MG TAB PO STA (17:37)
[2018-05-23] MEDS ORDERED: MORPHINE SULFATE 4 MG/ML SYRINGE IV STA (17:37)
[2018-05-23] MEDS ORDERED: ONDANSETRON ODT 4 MG TAB PO STA (17:37)
[2018-05-23] MEDS ORDERED: ONDANSETRON 4 MG/2 ML VIAL IVP STA (17:58)
[2018-05-23 18:05] VITALS: BP 129/59; PULSE 82
[2018-05-23 18:14] LABS: Basophils % (A) 0 %; Eosinophils # (A) 0.2 k/uL (0-0.7); Eosinophils % (A) 3 %; HCT 40.2 % (34.0-46.0); HGB 12.9 gm/dL (11.4-16.0); Lymphocytes # (A) 1.4 k/uL (1.0-4.8); Lymphocytes % (A) 27 %; MCH 30.7 pg (25.0-35.0); MCV 95.9 fL (80.0-100.0); Mean Platelet Volume 7.2; Monocytes # (A) 0.2 k/uL (0-1.0); Monocytes % (A) 5 %; Neutrophils # (A) 3.2 k/uL (1.3-7.7); Neutrophils % (A) 63 %; Platelet Count 224 k/uL (150-450); RBC 4.19 m/uL (3.80-5.40); RDW 12.6 % (11.5-15.5)
[2018-05-23 18:20] LABS: Appearance,Urine Cloudy (Clear); Bacteria,Urine Moderate /hpf; Bilirubin,Urine Negative (Negative); Blood,Urine Negative (Negative); Color,Urine Light Yellow; Glucose,Urine (UA) Negative (Negative); Ketones,Urine Negative (Negative); Leukocyte Esterase,Urine Negative (Negative); Mucus,Urine Rare /hpf; Nitrite,Urine Negative (Negative); PH, Urine 6.5 (5.0-8.0); Protein,Urine Negative (Negative); RBC,Urine 1 /hpf (0-5); Specific Gravity,Urine 1.007 (1.001-1.035); Squamous Epithelial Cell,Urine 4 /hpf (0-4); Urobilinogen,Urine <2.0 mg/dL (<2.0); WBC,Urine 4 /hpf (0-5)
[2018-05-23 18:23] LABS: ALT 22 U/L (9-52); AST 21 U/L (14-36); Albumin 4.5 g/dL (3.5-5.0); Alkaline Phosphatase 91 U/L (38-126); Anion Gap 9 mmol/L; Blood Urea Nitrogen 12 mg/dL (7-17); Calcium 9.3 mg/dL (8.4-10.2); Carbon Dioxide 27 mmol/L (22-30); Chloride 105 mmol/L (98-107); Glucose 82 mg/dL (74-99); Potassium 4.1 mmol/L (3.5-5.1); Sodium 141 mmol/L (137-145); Total Bilirubin 0.2 mg/dL (0.2-1.3); Total Protein 7.5 g/dL (6.3-8.2)
--- NOTE | 2018-05-23 18:48 | ED ---
Back Pain HPI - General Chief Complaint: Back Pain/Injury Stated Complaint: back pain Time Seen by Provider: 05/23/18 17:13 Source: patient Limitations: no limitations - History of Present Illness Initial Comments: Patient is a 52-year-old female presenting for back pain. She states that she has a history of multiple sclerosis and her neurologist, or lesions on her spine. She was previously prescribed Percocet and Lyrica but then he tested negative for the drugs and therefore they took her prescriptions away from her. She states that she is also been vomiting almost all month as well. She admits that the back pain is in the lower section of her back as well as the right upper section for back and feels a stabbing achy sensation without radiation. It is worse with bending over and she denies any significant injury but states that she did syncopized last week but had no injury from that. This particular episode of back pain is been present for the last couple days. She also denies any saddle anesthesia, no incontinence, urinary retention. - Related Data Home Medications Medication Instructions Recorded Confirmed Baclofen 10 mg PO HS 08/02/14 05/12/18 oxyCODONE-APAP 10-325MG [Percocet 1 tab PO DAILY PRN 02/03/16 05/12/18 10-325 mg] Propranolol LA [Inderal LA] 80 mg PO DAILY 05/20/16 05/12/18 Vilazodone HCl [Viibryd] 10 mg PO DAILY 05/20/16 05/12/18 Pregabalin [Lyrica] 150 mg PO BID 05/12/18 05/12/18 Allergies Allergy/AdvReac Type Severity Reaction Status Date / Time No Known Allergies Allergy Verified 05/23/18 16:45 Review of Systems ROS Statement: Those systems with pertinent positive or pertinent negative responses have been documented in the HPI. Constitutional: Negative for chills, fatigue and fever. HENT: Negative for congestion. Respiratory: Negative for chest tightness, shortness of breath and wheezing. Negative for cough Cardiovascular: Negative for chest pain and palpitations. Gastrointestinal: Negative for abdominal pain. Negative for abdominal distention , diarrhea, nausea and positive for vomiting. Genitourinary: Negative for dysuria. Musculoskeletal: Positive for back pain, negative for neck pain and neck stiffness. Skin: Negative for color change. Neurological: Negative for dizziness, speech difficulty, weakness and light- headedness. Psychiatric/Behavioral: Negative for agitation and confusion. Negative for anxiety ROS Other: All systems not noted in ROS Statement are negative. Past Medical History Past Medical History: Fibromyalgia, Neurologic Disorder, Osteoarthritis (OA), Skin Disorder, Thyroid Disorder Additional Past Medical History / Comment(s): Hx Psoriasis, arthritis, MULTIPLE SCLEROSIS, VERTIGO, chronic back pain History of Any Multi-Drug Resistant Organisms: None Reported Past Surgical History: Hysterectomy Additional Past Surgical History / Comment(s): Hx. Partial thyroidectomy Past Psychological History: Anxiety, Depression Smoking Status: Current every day smoker Past Alcohol Use History: None Reported Past Drug Use History: Marijuana - Past Family History Mother Family Medical History: Cancer General Exam - General Exam Comments Initial Comments: Constitutional: Pt is oriented to person, place, and time. Pt appears well- developed and well-nourished. No distress. HENT: Head: Normocephalic and atraumatic. Eyes: EOM are normal. Neck: Normal range of motion. Neck supple. Cardiovascular: Normal rate, regular rhythm, S1 normal, S2 normal and normal heart sounds. Exam reveals no gallop and no friction rub. No murmur heard. Pulmonary/Chest: Effort normal and breath sounds normal. No tachypnea and no bradypnea. No respiratory distress. No wheezes or rales noted. Abdominal: Soft. Bowel sounds are normal. Pt exhibits no shifting dullness, no distension, no pulsatile liver, no fluid wave, no abdominal bruit and no ascites. There is no tenderness. There is no rigidity, no rebound, no guarding, no tenderness at McBurney's point and negative Caldera's sign. Musculoskeletal: Normal range of motion. 5 out of 5 muscle strength of lower extremity. No sensory deficits. No tenderness to see spine, T-spine, L-spine Neurological: Pt is alert and oriented to person, place, and time. No cranial nerve deficit. Skin: Skin is warm and dry. No rash noted. Pt is not diaphoretic. No erythema. No pallor. Psychiatric: Pt has a normal mood and affect. Pt behavior is normal. Thought content normal. Limitations: no limitations Course Vital Signs 05/23/18 05/23/18 05/23/18 16:42 18:04 19:00 Temperature 98.1 F 98.2 F Pulse Rate 91 82 Respiratory 18 18 Rate Blood Pressure 125/79 129/59 O2 Sat by Pulse 98 97 Oximetry Medical Decision Making - Medical Decision Making Laboratory studies showed that there was no evidence of transaminitis or physical cytosis to be causing the patient's symptoms. Additionally, there is no significant tenderness to palpation of her back and no neuro deficits therefore imaging was not felt to be warranted. Patient was given narcotics as well as muscle relaxer and stated that the pain and improved. Because of her prescription drug use history, it was felt that it would not be appropriate to give her prescription narcotics and that she should follow-up with pain management as well as neurologist. She was advised to follow-up with her PCP as well and the next 1-2 days which she was agreeable to. - Lab Data Result diagrams: 05/23/18 18:04 05/23/18 18:04 Lab Results 05/23/18 05/23/18 05/23/18 Range/Units 18:04 18:04 18:04 WBC 5.0 (3.8-10.6) k/uL RBC 4.19 (3.80-5.40) m/uL Hgb 12.9 (11.4-16.0) gm/dL Hct 40.2 (34.0-46.0) % MCV 95.9 (80.0-100.0) fL MCH 30.7 (25.0-35.0) pg MCHC 32.0 (31.0-37.0) g/dL RDW 12.6 (11.5-15.5) % Plt Count 224 (150-450) k/uL Neutrophils % 63 % Lymphocytes % 27 % Monocytes % 5 % Eosinophils % 3 % Basophils % 0 % Neutrophils # 3.2 (1.3-7.7) k/uL Lymphocytes # 1.4 (1.0-4.8) k/uL Monocytes # 0.2 (0-1.0) k/uL Eosinophils # 0.2 (0-0.7) k/uL Basophils # 0.0 (0-0.2) k/uL Sodium 141 (137-145) mmol/L Potassium 4.1 (3.5-5.1) mmol/L Chloride 105 (98-107) mmol/L Carbon Dioxide 27 (22-30) mmol/L Anion Gap 9 mmol/L BUN 12 (7-17) mg/dL Creatinine 0.63 (0.52-1.04) mg/dL Est GFR (CKD-EPI)AfAm >90 (>60 ml/min/1.73 sqM) Est GFR (CKD-EPI)NonAf >90 (>60 ml/min/1.73 sqM) Glucose 82 (74-99) mg/dL Calcium 9.3 (8.4-10.2) mg/dL Total Bilirubin 0.2 (0.2-1.3) mg/dL AST 21 (14-36) U/L ALT 22 (9-52) U/L Alkaline Phosphatase 91 (38-126) U/L Total Protein 7.5 (6.3-8.2) g/dL Albumin 4.5 (3.5-5.0) g/dL Urine Color Light Yellow Urine Appearance Cloudy H (Clear) Urine pH 6.5 (5.0-8.0) Ur Specific [place] 1.007 (1.001-1.035) Urine Protein Negative (Negative) Urine Glucose (UA) Negative (Negative) Urine Ketones Negative (Negative) Urine Blood Negative (Negative) Urine Nitrite Negative (Negative) Urine Bilirubin Negative (Negative) Urine Urobilinogen <2.0 (<2.0) mg/dL Ur Leukocyte Esterase Negative (Negative) Urine RBC 1 (0-5) /hpf Urine WBC 4 (0-5) /hpf Ur Squamous Epith Cells 4 (0-4) /hpf Urine Bacteria Moderate H (None) /hpf Urine Mucus Rare H (None) /hpf Disposition Clinical Impression: Back pain, Nausea Disposition: HOME SELF-CARE Condition: Good Instructions: Chronic Back Pain (ED) Is patient prescribed a controlled substance at d/c from ED?: No Referrals: Boston Valentine DO [Primary Care Provider] - 1-2 days Time of Disposition: 18:52
[2018-05-23 19:01] VITALS: TEMP 98.2
== END 2018-05-23 19:03 | disposition home or self-care (01) ==
LOC: EC 16:13
DX: M54.5 Low back pain (principal); M54.6 Pain in thoracic spine; R11.2 Nausea with vomiting, unspecified; M79.7 Fibromyalgia; G35 Multiple sclerosis; F41.9 Anxiety disorder, unspecified; F32.9 Major depressive disorder, single episode, unspecified; F17.200 Nicotine dependence, unspecified, uncomplicated; Z79.899 Other long term (current) drug therapy
CPT/HCPCS: 99283; 96374; 96375 ×2; 96361; 36415; 80053; 85025; 81001; 87086; J2270; J2405; J1885

== ENCOUNTER 2018-05-31 13:58 | Emergency (ER) | payer MEDICARE, OTHER ==
[2018-05-31] MEDS ORDERED: predniSONE 20 MG TAB PO STA (14:20)
--- NOTE | 2018-05-31 14:39 | ED ---
General Adult HPI - General Chief complaint: Recheck/Abnormal Lab/Rx Stated complaint: MS flare up Time Seen by Provider: 05/31/18 14:11 Source: patient Mode of arrival: ambulatory Limitations: no limitations - History of Present Illness Initial comments: Patient is a 52-year-old female presents with chief complaint of an MS flare up. She states that her symptoms of been ongoing for 1 month. Patient states that she follows with Dr. Posey for this issue. She also states that Dr. Plunkett discontinued her Percocet recently. Patient cannot localize any pain symptoms at this time. She states that she has a follow-up appointment with Dr. Posey and is scheduled for steroid infusions and that her medications are supposed to be adjusted. - Related Data Home Medications Medication Instructions Recorded Confirmed Baclofen 10 mg PO HS 08/02/14 05/12/18 oxyCODONE-APAP 10-325MG [Percocet 1 tab PO DAILY PRN 02/03/16 05/12/18 10-325 mg] Propranolol LA [Inderal LA] 80 mg PO DAILY 05/20/16 05/12/18 Vilazodone HCl [Viibryd] 10 mg PO DAILY 05/20/16 05/12/18 Pregabalin [Lyrica] 150 mg PO BID 05/12/18 05/12/18 Previous Rx's Medication Instructions Recorded predniSONE 60 mg PO DAILY #12 tab 05/31/18 Allergies Allergy/AdvReac Type Severity Reaction Status Date / Time No Known Allergies Allergy Verified 05/31/18 14:03 Review of Systems ROS Statement: Those systems with pertinent positive or pertinent negative responses have been documented in the HPI. ROS Other: All systems not noted in ROS Statement are negative. Constitutional: Reports: weakness Past Medical History Past Medical History: Fibromyalgia, Neurologic Disorder, Osteoarthritis (OA), Skin Disorder, Thyroid Disorder Additional Past Medical History / Comment(s): Hx Psoriasis, arthritis, MULTIPLE SCLEROSIS, VERTIGO, chronic back pain History of Any Multi-Drug Resistant Organisms: None Reported Past Surgical History: Hysterectomy Additional Past Surgical History / Comment(s): Hx. Partial thyroidectomy Past Psychological History: Anxiety, Depression Smoking Status: Current every day smoker Past Alcohol Use History: None Reported Past Drug Use History: Marijuana - Past Family History Mother Family Medical History: Cancer General Exam Limitations: no limitations General appearance: alert, in no apparent distress Head exam: Present: atraumatic, normocephalic Eye exam: Present: normal appearance, PERRL, EOMI ENT exam: Present: normal exam, mucous membranes moist Neck exam: Present: normal inspection Respiratory exam: Present: normal lung sounds bilaterally. Absent: respiratory distress, wheezes Cardiovascular Exam: Present: regular rate, normal rhythm GI/Abdominal exam: Present: soft. Absent: distended, tenderness Rectal exam: Present: deferred Extremities exam: Present: normal inspection Back exam: Present: normal inspection Neurological exam: Present: alert, oriented X3, CN II-XII intact, normal gait. Absent: motor sensory deficit Psychiatric exam: Present: normal affect, normal mood Skin exam: Present: warm, dry, intact Course Vital Signs 05/31/18 14:01 Temperature 98.2 F Pulse Rate 104 H Respiratory 20 Rate Blood Pressure 127/77 O2 Sat by Pulse 98 Oximetry Medical Decision Making - Medical Decision Making There is a chief complaint of "MS exacerbation." On initial evaluation, vital signs are stable, patient is in no acute distress. Patient is able to emulate well without assistance. Review of patient's records show that she recently had a computed tomography scan about 2 and half weeks ago which was unremarkable. MAPS was reviewed, patient received her last prescription of Percocet on 04/15/2018, this was written for 30 days. Patient reevaluated basic lab work. Given patient's normal neuro exam and one-month duration of her symptoms, do not believe that further neuroimaging is warranted at this time. Patient will be given her first dose of steroids in the emergency department. 3:13 PM Lab evaluation is unremarkable, urinalysis does not show evidence of infection. At this time, patient stable for discharge. She was prescribed 4 more days of prednisone to complete her steroid burst, she was instructed to follow up with primary care in 1-2 days, return to the emergency department if new or concerning symptoms arise. - Lab Data Result diagrams: 05/31/18 14:15 05/31/18 14:15 Lab Results 05/31/18 05/31/18 05/31/18 Range/Units 14:15 14:15 14:25 WBC 7.2 (3.8-10.6) k/uL RBC 4.41 (3.80-5.40) m/uL Hgb 13.8 (11.4-16.0) gm/dL Hct 41.5 (34.0-46.0) % MCV 93.9 (80.0-100.0) fL MCH 31.2 (25.0-35.0) pg MCHC 33.2 (31.0-37.0) g/dL RDW 12.3 (11.5-15.5) % Plt Count 263 (150-450) k/uL Neutrophils % 69 % Lymphocytes % 23 % Monocytes % 6 % Eosinophils % 1 % Basophils % 0 % Neutrophils # 5.0 (1.3-7.7) k/uL Lymphocytes # 1.6 (1.0-4.8) k/uL Monocytes # 0.4 (0-1.0) k/uL Eosinophils # 0.1 (0-0.7) k/uL Basophils # 0.0 (0-0.2) k/uL Sodium 142 (137-145) mmol/L Potassium 3.6 (3.5-5.1) mmol/L Chloride 106 (98-107) mmol/L Carbon Dioxide 24 (22-30) mmol/L Anion Gap 12 mmol/L BUN 13 (7-17) mg/dL Creatinine 0.59 (0.52-1.04) mg/dL Est GFR (CKD-EPI)AfAm >90 (>60 ml/min/1.73 sqM) Est GFR (CKD-EPI)NonAf >90 (>60 ml/min/1.73 sqM) Glucose 92 (74-99) mg/dL Calcium 9.5 (8.4-10.2) mg/dL Urine Color Light Yellow Urine Appearance Clear (Clear) Urine pH 6.0 (5.0-8.0) Ur Specific [place] 1.005 (1.001-1.035) Urine Protein Negative (Negative) Urine Glucose (UA) Negative (Negative) Urine Ketones 1+ H (Negative) Urine Blood Negative (Negative) Urine Nitrite Negative (Negative) Urine Bilirubin Negative (Negative) Urine Urobilinogen <2.0 (<2.0) mg/dL Ur Leukocyte Esterase Negative (Negative) Disposition Clinical Impression: Pain Disposition: HOME SELF-CARE Condition: Good Prescriptions: predniSONE 60 mg PO DAILY #12 tab Is patient prescribed a controlled substance at d/c from ED?: No Referrals: Boston Valentine DO [Primary Care Provider] - 1-2 days
[2018-05-31 15:00] LABS: Basophils % (A) 0 %; Eosinophils # (A) 0.1 k/uL (0-0.7); Eosinophils % (A) 1 %; HCT 41.5 % (34.0-46.0); HGB 13.8 gm/dL (11.4-16.0); Lymphocytes # (A) 1.6 k/uL (1.0-4.8); Lymphocytes % (A) 23 %; MCH 31.2 pg (25.0-35.0); MCHC 33.2 g/dL (31.0-37.0); MCV 93.9 fL (80.0-100.0); Monocytes # (A) 0.4 k/uL (0-1.0); Monocytes % (A) 6 %; Neutrophils % (A) 69 %; Platelet Count 263 k/uL (150-450); RBC 4.41 m/uL (3.80-5.40); RDW 12.3 % (11.5-15.5); WBC 7.2 k/uL (3.8-10.6)
[2018-05-31 15:01] LABS: Appearance,Urine Clear (Clear); Bilirubin,Urine Negative (Negative); Blood,Urine Negative (Negative); Color,Urine Light Yellow; Glucose,Urine (UA) Negative (Negative); Ketones,Urine 1+ (Negative); Leukocyte Esterase,Urine Negative (Negative); Nitrite,Urine Negative (Negative); Protein,Urine Negative (Negative); Specific Gravity,Urine 1.005 (1.001-1.035); Urobilinogen,Urine <2.0 mg/dL (<2.0)
[2018-05-31 15:10] LABS: Anion Gap 12 mmol/L; Blood Urea Nitrogen 13 mg/dL (7-17); Calcium 9.5 mg/dL (8.4-10.2); Carbon Dioxide 24 mmol/L (22-30); Chloride 106 mmol/L (98-107); Glucose 92 mg/dL (74-99); Potassium 3.6 mmol/L (3.5-5.1); Sodium 142 mmol/L (137-145)
[2018-05-31 15:39] VITALS: BP 126/65; PULSE 69; RESP 18; TEMP 97.9
== END 2018-05-31 15:38 | disposition home or self-care (01) ==
LOC: EC 13:58
DX: R52 Pain, unspecified (principal); G35 Multiple sclerosis; F32.9 Major depressive disorder, single episode, unspecified; M79.7 Fibromyalgia; F17.200 Nicotine dependence, unspecified, uncomplicated; Z79.899 Other long term (current) drug therapy
CPT/HCPCS: 99283; 36415; 80048; 85025; 81003; J7512

== ENCOUNTER → 2018-06-12 | Outpatient (CLI) | payer MEDICARE, OTHER ==
--- NOTE | 2018-06-15 14:02 | MM ---
Reason for exam: screening (asymptomatic). Last mammogram was performed 5 years and 10 months ago. History: Patient is postmenopausal and has history of endometrial cancer at age 31. Family history of breast cancer in mother and breast cancer in 3 aunts. Took hormonal contraceptives for 4 years. Physical Findings: A clinical breast exam by your physician is recommended on an annual basis and results should be correlated with mammographic findings. MG 3D Screening Mammo W/Cad Bilateral CC and MLO view(s) were taken. Prior study comparison: August 06, 2012, bilateral digital screening mammo w/CAD. November 22, 2008, bilateral diagnostic digital mammog. The breast tissue is heterogeneously dense. This may lower the sensitivity of mammography. Finding #1: There is a 7 mm circumscribed oval mass in the middle position of the left breast. Finding #2: There are grouped/clustered calcifications in the upper outer quadrant, posterior position of the right breast. 22mm lesion and smaller adjacent near calcifications posterior upper outer quadrant right breast ASSESSMENT: Incomplete: need additional imaging evaluation, BI-RAD 0 RECOMMENDATION: Special view mammogram of the right breast. Ultrasound of both breasts. [facility] will attempt to contact patient to return for supplemental views and ultrasound.
== END | disposition home or self-care (01) ==
LOC: RADMAMWWP 14:41
PROVIDERS: ATTEND Family Medicine
DX: Z12.31 Encounter for screening mammogram for malignant neoplasm of breast (principal)
CPT/HCPCS: 77063; 77067

== ENCOUNTER → 2018-06-24 | Outpatient (CLI) | payer MEDICARE, OTHER ==
--- NOTE | 2018-06-24 11:58 | MM ---
Reason for exam: additional evaluation requested from abnormal screening. Last mammogram was performed less than 1 month ago. History: Patient is postmenopausal and has history of endometrial cancer at age 31. Family history of breast cancer in mother and breast cancer in 3 aunts. Took hormonal contraceptives for 4 years. Physical Findings: Nurse did not find any significant physical abnormalities on exam. MG 3D Work Up W/Cad RT CC with magnification, LM with magnification, and LM view(s) were taken of the right breast. Prior study comparison: June 12, 2018, bilateral MG 3d screening mammo w/cad. August 06, 2012, bilateral digital screening mammo w/CAD. The breast tissue is heterogeneously dense. This may lower the sensitivity of mammography. Grouped heterogeneous calcifications posterior upper outer quadrant, biopsy recommended. Adjacent 2.2cm focal asymmetry appears new, biopsy recommended. These results were verbally communicated with the patient and result sheet given to the patient on 06/24/18. ASSESSMENT: Incomplete: need additional imaging evaluation, BI-RAD 0 RECOMMENDATION: Ultrasound of both breasts.
--- NOTE | 2018-06-24 12:03 | USB ---
Reason for exam: additional evaluation requested from abnormal screening. History: Patient is postmenopausal and has history of endometrial cancer at age 31. Family history of breast cancer in mother and breast cancer in 3 aunts. Took hormonal contraceptives for 4 years. US Breast Workup Limited JUNG Right complete breast ultrasound includes all four quadrants, the retroareolar region and axilla. Finding demonstrates a 0.4 x 0.3 x 0.4cm benign lesion too small to characterize at 6 o'clock, a 0.7 x 0.3 x 0.8cm benign, cystic cluster at 7 o'clock, a 1.2 x 0.5 x 0.7cm cystic cluster, possibly solid component at 10 o'clock for which a biopsy is recommended, this does not correspond to the mammographic focal asymmetry and a 1.5 x 0.4 x 1.1cm cystic lesion at 11 o'clock. Left limited breast ultrasound including focal area of concern, retroareolar and axilla demonstrates a 0.6 x 0.5 x 0.7cm benign, cystic lesion at 5 o'clock, corresponds well to the mammographic finding. These results were verbally communicated with the patient and result sheet given to the patient on 06/24/18. ASSESSMENT: Suspicious, BI-RAD 4 RECOMMENDATION: Ultrasound core biopsy of the right breast. (10 o'clock zone A) Stereotactic core biopsy of the right breast. (2 sites, upper outer quadrant calcifications and adjacent focal asymmetry) Total [address] Valentine with mammographic findings and has scheduled an appointment for the patient for 07/10/18 at 2:[address] Valentine. Biopsy scheduled for 07/16/18 at 8 o'clock and 10 o'clock. PRELIMINARY REPORT CALLED AND FAXED TO DR. VALENTINE ON 06/24/18.
== END | disposition home or self-care (01) ==
LOC: RADMAMWWP 07:41
PROVIDERS: ATTEND Family Medicine
DX: R92.8 Other abnormal and inconclusive findings on diagnostic imaging of breast (principal)
CPT/HCPCS: 77065; 76642; G0279; 77061

== ENCOUNTER → 2018-07-10 | Outpatient (CLI) | payer MEDICARE ==
[2018-07-10 14:04] VITALS: BP 114/76; PULSE 77; RESP 12; TEMP 98; BMI 22.2
--- NOTE | 2018-07-10 14:38 | P.GSHP ---
History of Present Illness H&P Date: 07/10/18 Chief Complaint: abnormal mammogram and ultrasound of the right breast The patient is a 52-year-old white female who on a routine screening mammogram was noted to have an area of concern in the right breast. She had grouped heterogeneous calcifications posterior upper outer quadrant as well as a 2.2 cm focal asymmetry which appeared new in the breast additionally she was recommended to undergo ultrasound of the breast the ultrasound of the right breast revealed a lesion at 10:00 for which biopsy was recommended and the ultrasound of the left breast revealed a cystic area corresponding to mammographic findings total 3 areas were recommended for biopsy ultrasound core biopsy right breast 10:00 zone A, stereotactic core biopsy of right breast 2 sites upper outer quadrant calcifications and adjacent focal asymmetry. The patient herself does not feel any changes in her breasts. She has no complaints of any nodules or masses. She has no complaints of any pain in her breast. She has not had any recent infections in her breast and no history of any trauma to the breast. She has not had prior breast biopsies. Family History: 1. maternal aunt: breast cancer in her late 60's, bilateral 2. maternal aunt: lymphoma 3. maternal aunt: breast cancer late 70's 4. maternal aunt: melanoma 5. maternal aunt: lung 6. maternal grandfather: lung cancer 7. mother: breast cancer, age 78 8. son: Hodgkins at 22 Hormonal History: menarche: 14 : 3, 3 children, first at 22, breast fed: no menopause: hysterectomy in 30's took one ovary (uncertain of the reason) BCP: 6 years Hormones: none Past Surgical History: 1. hysterectomy 2. 1/2 of thyroid Medical History: 1. Multiple sclerosis . Prior history of psoriasis which seems to have resolved Social History: smoke: 1/2 PPD since 12 alcohol: none drugs: Marijuana when she gets migraines monthly/ no other drugs - Constitutional Constitutional: Reports sweats - EENT Eyes: bilateral blurred vision, bilateral pain Ears: bilateral: decreased hearing, tinnitus Ears, nose, mouth and throat: Reports headache, Denies sore throat - Breasts Breasts: bilateral: as per HPI - Cardiovascular Cardiovascular: Denies chest pain, Denies shortness of breath - Respiratory Comment: smoker Respiratory: Denies cough, Denies 7 - Gastrointestinal Gastrointestinal: Denies abdominal pain, Denies diarrhea, Denies nausea, Denies vomiting - Genitourinary (Female) Genitourinary: Denies dysuria, Denies hematuria - Menstruation Menstruation: Reports post hysterectomy - Musculoskeletal Comment: arthritis in her joints possible related to multiple sclerosis - Integumentary Integumentary: Denies pruritus, Denies rash - Neurological Neurological: Reports ataxia, Reports weakness - Psychiatric Psychiatric: Reports anxiety, Reports depression - Endocrine Endocrine: Reports fatigue, Reports weight change - Hematologic/Lymphatic Comment: none - Allergic/Immunologic Comment: none Past Medical History Past Medical History: Fibromyalgia, Neurologic Disorder, Osteoarthritis (OA), Skin Disorder, Thyroid Disorder Additional Past Medical History / Comment(s): Hx Psoriasis, arthritis, MULTIPLE SCLEROSIS, VERTIGO, chronic back pain History of Any Multi-Drug Resistant Organisms: None Reported Past Surgical History: Hysterectomy Additional Past Surgical History / Comment(s): Hx. Partial thyroidectomy Past Anesthesia/Blood Transfusion Reactions: No Reported Reaction Past Psychological History: Anxiety, Depression Smoking Status: Current every day smoker Past Alcohol Use History: None Reported Past Drug Use History: Marijuana Additional Drug Use History / Comment(s): Pt. states takes medical marijuana for migraines. - Past Family History Mother Family Medical History: Cancer Medications and Allergies Home Medications Medication Instructions Recorded Confirmed Type Baclofen 10 mg PO HS PRN 08/02/14 07/10/18 History Dimethyl Fumarate [Tecfidera] 240 mg PO BID 07/08/18 07/10/18 History Allergies Allergy/AdvReac Type Severity Reaction Status Date / Time No Known Allergies Allergy Verified 07/08/18 12:31 Surgical - Exam Vital Signs Temp Pulse Resp BP Pulse Ox 98 F 77 12 114/76 100 07/10/18 14:00 07/10/18 14:00 07/10/18 14:00 07/10/18 14:00 07/10/18 14:00 BMI 22.3 - General well developed, moderate distress - Eyes normal ocular movement, no icteric - ENT no hearing loss, no congestion - Neck no masses, trachea midline - Respiratory normal respiratory effort, clear to auscultation - Cardiovascular Rhythm: regular Heart Sounds: normal: S1, S2 - Abdomen Abdomen: soft - Neurologic no disoriented, no combative - Musculoskeletal ataxia - Psychiatric oriented to time, oriented to person, oriented to place, speech is normal, memory intact Breast examination: Right breast: Multi-positional examination no dominant masses or nodules of concern, fibrocystic changes Right axilla: No adenopathy of concern Left breast: Multi-positional examination no dominant masses or nodules of concern Left axilla: No adenopathy of concern Results Results of mammogram and ultrasound reviewed Assessment and Plan Assessment: Impression: 1. Mammogram and ultrasound abnormality right breast 2 areas for which stereotactic biopsy has been recommended in the upper outer quadrant and one area for ultrasound core biopsy has been recommended in the 10 o'clock position 2. Multiple sclerosis 3. Prior history of psoriasis which has resolved 4. History of migraine headaches 5. nicotine dependance Plan: 1. Ultrasound-guided core biopsy 10:00 location of the right breast 2. Stereotactic core biopsy 2 areas in the upper outer quadrant of the right breast 3. Medical management of medical conditions 4. Follow-up after core biopsies obtained CC: Dr. Heather Valentine The skin benefits of both ultrasound and steered tactic core biopsy were discussed with the patient and her mother. They understand that the risks include bleeding infection reaction to the anesthetic or clip migration after biopsy has occurred. They will also understand options would would be watchful waiting or open biopsy in the operating room neither of which I recommended. They wish to proceed with the stereotactic an ultrasound core biopsy of the right breast.
--- NOTE | 2018-07-10 14:42 | P.PN ---
Progress Note - Text Progress Note Date: 07/10/18 The patient and her mother brings to my attention the fact that she is scheduled to start a new medication for the multiple sclerosis in early July. However she was told that this new medication may increase her risk for breast cancer. We would therefore recommend that we see the results of the biopsy of the breast prior to beginning this medication. Depending on results we will have further discussion with Dr. Posey her neurologist prior to the intervention with this medication.
== END ==
LOC: WWCWWP 13:49
PROVIDERS: ATTEND Surgery
DX: Z53.9 Procedure and treatment not carried out, unspecified reason (principal)

== ENCOUNTER → 2018-07-16 | Day surgery (SDC) | payer MEDICARE ==
[2018-07-16 07:24] VITALS: RESP 16; BMI 22.2
--- NOTE | 2018-07-16 08:43 | P.OP ---
Date of Procedure: 07/16/18 Preoperative Diagnosis: Mammographic abnormality right breast upper outer quadrant Postoperative Diagnosis: same Procedure(s) Performed: Right breast stereotactic core biopsy Anesthesia: local Surgeon: Krystina Valentine Estimated Blood Loss (ml): 1 Pathology: other (Breast tissue) Condition: stable Disposition: same day Indications for Procedure: The patient is a 52-year-old white female who presents with mammographic abnormality of suspicious microcalcifications associated with some nodularity in the right breast in the upper outer quadrant area. Ultrasound was performed and revealed an separate area of concern in the breast was recommended this area with the microcalcifications be sampled stereotactically. Risk and benefits of the procedure were discussed with the patient as well as alternatives. The patient wished to proceed with a stereotactic right breast core biopsy. Operative Findings: Microcalcifications Description of Procedure: The patient was taken to the stereotactic core biopsy unit. She was positioned on the low rad table such that the lesion could be approached from a lateral to medial direction. This is in the right breast. The area was identified on research hydrologist films. The breast was prepped using Betadine. 20 mL of 1% lidocaine with bicarbonate were used for the local anesthetic. A 9-gauge vacuum assisted rotating core biopsy needle was used to obtain samples. The correct coordinates were targeted. The needle was driven to the correct coordinates and prefire films were obtained. The needle was fired and posterior films were obtained showing that the needle was in the correct location. This approximately 12 specimens were obtained. Specimen radiograph revealed that the area of concern up in sampled. A secure marked out. Marker was inserted. The patient was given a follow-up appointment with Dr. Luis Antonio Cantu in 1 week. The patient tolerated the procedure in stable condition with no immediate postoperative complications.
[2018-07-16 09:21] VITALS: TEMP 98.1
--- NOTE | 2018-07-16 10:34 | MM ---
EXAMINATION TYPE: MG stereo VAD BX RT DATE OF EXAM: 07/16/2018 COMPARISON: 06/24/2018 CLINICAL HISTORY: Heterogenous right upper outer quadrant posterior depth calcifications with adjacen t 2.2 cm focal asymmetry for which stereotactic biopsy was recommended. TECHNIQUE: Stereotactic guided core biopsy of right breast. FINDINGS: The procedure of stereotactic guided core biopsy was explained to the patient. Benefits, a lternatives, and risks were discussed. An informed consent was then obtained. Preprocedural timeout was performed. The shortness pathway for biopsy was chosen. Shortness pathway was lateral to medial approach. I sony formed the localization, then surgeon, Dr. Luis Antonio Cantu performed the remainder of the procedure. A va cuum assisted biopsy gun was used to obtain multiple core samples. The patient tolerated the procedure well without any immediate complication. The patient was kept in the radiology department for short stay after the procedure and then discharged home in stable condi tion. Targeted calcifications are identified in specimen mammogram. Post biopsy mammogram shows the top hat-shaped biopsy marker to appear in satisfactory position relative to the targeted area of con cern on the preprocedure images. IMPRESSION: SUCCESSFUL, UNCOMPLICATED STEREOTACTIC GUIDED CORE BIOPSY OF THE HETEROGENOUS RIGHT UPPER OUTER QUADR ANT POSTERIOR DEPTH CALCIFICATIONS WITH ADJACENT 2.2 CM FOCAL ASYMMETRY, FULL PATHOLOGY RESULTS TO EMMA BUCKNER
--- NOTE | 2018-07-16 10:45 | USB ---
EXAMINATION TYPE: US biopsy breast VAD RT DATE OF EXAM: 07/16/2018 CLINICAL HISTORY: R92.8 Abnormal Mammogram. TECHNIQUE: Ultrasound guided core biopsy of right breast. COMPARISON: 06/24/2018 FINDINGS: The procedure of ultrasound guided core biopsy was explained to the patient. Benefits, alt ernatives, and risks were discussed. An informed consent was then obtained. Preprocedural timeout w as performed. Preprocedural sonographic imaging demonstrated a suspicious hypoechoic 0.5 x 0.4 x 0.5 cm mass at the 9:00 position. The previously seen mass at the 10:00 position elongates on antiradial and appears as adjacent breast tissue. Further evaluation of this mass and recommendations will made upon biopsy results of the 9:00 biopsied mass. The patient was placed in supine positioning for imaging and for the procedure. The overlying skin w as prepped and draped in usual sterile fashion. 8 cc of lidocaine buffered with bicarbonate was used as anesthetic into the skin and subcutaneous tissue up to the 0.5 x 0.4 x 0.5 cm mass at the 9:00 pos ition within the right breast. Under ultrasound guidance, a 12-gauge vacuum assisted biopsy gun device was used to obtain 4 core alex ples. Following this, a ribbon-shaped biopsy marker was left directly adjacent to the mass. The patient tolerated the procedure well without any immediate complication. The patient was kept in the radiology department for short stay after the procedure and then discharged home in stable condi tion. IMPRESSION: Successful, uncomplicated ultrasound guided core biopsy of a 0.5 x 0.4 x 0.5 cm mass at t he 9:00 position in the right breast, full pathology results to follow. Recommendation for the 10:00 mass versus pseudomass with made upon radiologic/pathologic correlation of the biopsy O'clock mass.
[2018-07-16 10:59] VITALS: BP 112/74; PULSE 62
== END ==
LOC: RADMAMWWP 06:51 → EDSTATUS 08:00
PROVIDERS: ATTEND Surgery
DX: N60.91 Unspecified benign mammary dysplasia of right breast (principal); N60.21 Fibroadenosis of right breast; R92.1 Mammographic calcification found on diagnostic imaging of breast; N60.31 Fibrosclerosis of right breast; N60.81 Other benign mammary dysplasias of right breast
CPT/HCPCS: 88305; 19081; 19083; A4648 ×2; J2001

== ENCOUNTER → 2018-07-24 | Outpatient (CLI) | payer MEDICARE, OTHER ==
[2018-07-24 16:27] LABS: Hepatitis B Core IgM Non-Reactive (Non-Reactive); Hepatitis B Surface AB- Quant 3.5 mIU/mL
== END | disposition home or self-care (01) ==
LOC: LABWHC1 10:02
PROVIDERS: ATTEND Nurse Practitioner Acute Care
DX: G35 Multiple sclerosis (principal)
CPT/HCPCS: 36415; 86704; 86705; 86706; 87340

== ENCOUNTER → 2018-07-24 | Outpatient (CLI) | payer MEDICARE, OTHER ==
[2018-07-24 10:11] VITALS: BP 109/73; PULSE 72; RESP 16; TEMP 97.4; BMI 22.2
--- NOTE | 2018-07-24 10:21 | P.PN ---
Subjective Progress Note Date: 07/24/18 Principal diagnosis: Status post ultrasound and stereotactic core biopsy of 2 sites in the right breast. The stereotactic core biopsy site revealed focal atypical ductal hyperplasia. The ultrasound core biopsy site revealed only fibrocystic changes. The patient is a 52-year-old white female status post ultrasound core biopsy answered tactic core biopsy of 2 separate sites in the right breast. The ultrasound core biopsy revealed fibrocystic changes. The stereotactic core biopsy revealed focal atypical ductal hyperplasia. The patient also was noted to have pseudo-angiomatous stromal hyperplasia at the stereotactic core biopsy site. The patient has no complaints related to the biopsy. Of significance is the fact that she has been diagnosed with multiple sclerosis and is following with Dr. Posey. Objective - Vital Signs Vital signs: Vital Signs Temp 97.4 F L 07/24/18 10:07 Pulse 72 07/24/18 10:07 Resp 16 07/24/18 10:07 BP 109/73 07/24/18 10:07 Pulse Ox 98 07/24/18 10:07 Intake & Output 07/23/18 07/24/18 07/24/18 18:59 06:59 18:59 Weight 62.596 kg - Constitutional General appearance: Present: average body habitus - EENT Eyes: Present: EOMI ENT: Present: hearing grossly normal - Neck Neck: Present: normal ROM - Respiratory Respiratory: bilateral: CTA - Cardiovascular Rhythm: regular Heart sounds: normal: S1, S2 - Integumentary Integumentary Comment(s): Examination of the puncture sites for the core biopsies reveals him to be clean and dry with some mild ecchymosis no evidence of any infection - Psychiatric Psychiatric: Present: A&O x's 3, appropriate affect, intact judgment & insight Assessment and Plan Assessment: Impression: 1. Patient status post her tactic core biopsy of the right breast and an status post ultrasound-guided core biopsy of the right breast 2. Stereotactic core biopsy site revealed focal atypical ductal hyperplasia for which needle localization and excisional biopsy is been recommended 2. Ultrasound-guided core biopsy revealed fibrocystic changes which close surveillance will be recommended 3. History of multiple sclerosis Plan: 1. Needle localization excisional biopsy of stereotactic core biopsy site 2. Medical/neurology clearance Risk and benefits of needle localization excisional biopsy of been discussed with the patient she understands and this was scheduled in the near future. Cc: Dr. Vaelntine Dr. Posey
== END ==
LOC: WWCWWP 09:56
PROVIDERS: ATTEND Surgery
DX: Z53.9 Procedure and treatment not carried out, unspecified reason (principal)

== ENCOUNTER 2018-08-25 08:33 | Day surgery (SDC) | payer MEDICARE, OTHER ==
[~2018-08-25 08:33] MED LIST: HEPARIN SODIUM,PORCINE 5,000 UNIT/ML 1 ML VIAL SQ ONE; Pre Op ABX Message 1 EACH MISC MISCELLANE ONE
[2018-08-25 09:09] VITALS: RESP 16
[2018-08-25] MEDS ORDERED: LACTATED RINGERS 1,000 ML IV ONE ×2 (09:11→14:26)
[2018-08-25] MEDS ORDERED: LIDOCAINE 1% 20 ML VIAL (10MG/ML) FOR IV START INTRADERMA ONE (09:12)
[2018-08-25] MEDS ORDERED: LIDOCAINE 1% 20 ML VIAL (10MG/ML) FOR IV START INTRADERMA PRN (09:29)
[2018-08-25] MEDS ORDERED: LACTATED RINGERS 1,000 ML IV SCH (09:29)
[2018-08-25] MEDS ORDERED: SCOPOLAMINE 1.5MG/72HR PATCH TRANSDERM ONE (09:29)
[2018-08-25] MEDS ORDERED: DEXAMETHASONE SOD PHOSPHATE 10 MG/ML 1 ML VIAL IV ONE (09:29)
[2018-08-25] MEDS: ONDANSETRON 4 MG/2 ML VIAL IVP ONE ×2 (09:35→14:59)
[2018-08-25] MEDS ORDERED: LIDOCAINE 1% INJ 10MG/ML (20 ML MDV) SQ ONE (10:13)
[2018-08-25] MEDS ORDERED: SODIUM BICARB 4% 5 ML VIAL (0.48 MEQ/ML) MISCELLANE ONE (10:13)
[2018-08-25] MEDS ORDERED: fentaNYL (PF) 50 MCG/ML 2 ML AMP ONE (13:46)
[2018-08-25] MEDS ORDERED: SUCCINYLCHOLINE CHLORIDE 100 MG/5 ML SYR IV ONE (13:46)
[2018-08-25] MEDS ORDERED: MIDAZOLAM 2 MG/2 ML VIAL ONE (13:46)
[2018-08-25] MEDS ORDERED: PROPOFOL 10 MG/ML 20 ML VIAL IV ONE (13:46)
[2018-08-25] MEDS ORDERED: LIDOCAINE 1% INJ 10MG/ML (20 ML MDV) ONE (13:46)
[2018-08-25] MEDS ORDERED: ONDANSETRON 4 MG/2 ML VIAL ONE (13:46)
[2018-08-25] MEDS ORDERED: HEPARIN SODIUM,PORCINE 5,000 UNIT/ML 1 ML VIAL SQ ONE (14:02)
--- NOTE | 2018-08-25 14:38 | P.OP ---
Date of Procedure: 08/25/18 Preoperative Diagnosis: Core biopsy of right breast revealing atypical hyperplasia Postoperative Diagnosis: Same Procedure(s) Performed: Needle localization excisional biopsy right breast lesion Anesthesia: SARAHA Surgeon: Krystina Valentine Estimated Blood Loss (ml): 5 IV fluids (ml): 400 Pathology: other (Breast tissue) Condition: stable Disposition: PACU Indications for Procedure: Patient is a 52-year-old white female status post core biopsy of an area of concern in the right breast. This revealed atypical hyperplasia and surgical excision of the area is recommended. Patient understands risks and benefits and wished to proceed. Operative Findings: Dense breast tissue Description of Procedure: The patient was taken to the operating room and following induction of anesthesia the right breast was prepped and draped in a sterile fashion. Incision was made and carried down to the hook of the needle. Surrounding tissue was excised. The specimen was painted for orientation. Radiograph of the specimen revealed the area of concern had been removed. The wound was well irrigated. There was no evidence of any bleeding. Hemostasis was attained using electrocautery device as well as the Harmonic scalpel. Titanium clips were placed. Posteriorly the dissection was carried out to the muscle of the chest wall. The incision was closed with 3-0 Vicryl deep sutures and a 4-0 Monocryl. The patient tolerated the procedure in stable condition.
--- NOTE | 2018-08-25 14:40 | P.DS ---
Providers Attending physician: Krystina Valentine Primary care physician: Boston Valentine Plan - Discharge Summary New Discharge Prescriptions: No Action Baclofen 10 mg PO HS PRN PRN Reason: Pain Dimethyl Fumarate [Tecfidera] 240 mg PO BID Pregabalin [Lyrica] 75 mg PO BID Discharge Medication List Baclofen 10 mg PO HS PRN 08/02/14 [History] Dimethyl Fumarate [Tecfidera] 240 mg PO BID 07/08/18 [History] Pregabalin [Lyrica] 75 mg PO BID 07/24/18 [History] Follow up Appointment(s)/Referral(s): Krystina Valentine MD [STAFF PHYSICIAN] - 1 Week Activity/Diet/Wound Care/Special Instructions: Do not drive today Do not drive if taking narcotic pain medication Patient may shower after 48 hours Wear bra at all times Discharge Disposition: HOME SELF-CARE
[2018-08-25 14:55] VITALS: TEMP 97.9
[2018-08-25] MEDS: HYDROmorphone 0.5 MG/0.5 ML SYRINGE IVP PRN ×4 (14:59→15:18)
--- NOTE | 2018-08-25 15:00 | MM ---
EXAMINATION TYPE: MG pre op needle loc RT, MG surgical specimen RT DATE OF EXAM: 08/25/2018 COMPARISON: NONE CLINICAL HISTORY: Abnormal mammogram TECHNIQUE: Needle localization with wire placement and surgical excision of area of concern in the right breast. FINDINGS: The procedure of needle localization with wire placement and than surgical excision was explained to the patient. Benefits, alternatives, and risks were discussed. An informed consent was then obtained. The shortest pathway for procedure was chosen. Shortest pathway was lateral approach. The overlying skin was prepped and draped in usual sterile fashion. Lidocaine buffered with bicarbonate was used as anesthetic into the skin and subcutaneous tissue up to the level of area of concern. A 5 cm needle was used. It was placed via a lateral approach under mammographic guidance. Subsequent 90 degrees mammogram show the needle to be in satisfactory position relative to the targeted area. At this point, wire was placed and the needle was withdrawn. The wire was fixed to patient's skin. Images were marked for surgeon. The patient tolerated the procedure well without any immediate complication. The patient was kept in the radiology department for short stay after the procedure and then taken to surgery for surgical excision. Marker clip and wire are identified in specimen mammogram. The patient was kept in hospital for short stay after the procedure and then discharged home in stable condition. IMPRESSION: Successful, uncomplicated needle localization with wire placement and surgical excision of marker in the right breast, full pathology results to follow. Pathology Results: Benign RIGHT BREAST TISSUE, MAMMOGRAPHICALLY ORIENTED LUMPECTOMY: Benign breast parenchyma with fibrocystic spectrum changes (stromal fibrosis and duct cystic changes and focal sclerosing lesions). Negative for carcinoma or atypical duct hyperplasia like that seen in the prior biopsy ([id number] part A). Recommendation Surgical consult of the right breast. (discordant) MTDD
[2018-08-25 16:31] VITALS: PULSE 100
[2018-08-25 16:33] VITALS: BP 116/76
== END 2018-08-25 16:55 | disposition home or self-care (01) ==
LOC: OR 08:33
PROVIDERS: ATTEND Surgery
DX: N60.31 Fibrosclerosis of right breast (principal); N60.21 Fibroadenosis of right breast; Z80.3 Family history of malignant neoplasm of breast; Z80.1 Family history of malignant neoplasm of trachea, bronchus and lung; Z80.8 Family history of malignant neoplasm of other organs or systems; G35 Multiple sclerosis; F17.210 Nicotine dependence, cigarettes, uncomplicated; M79.7 Fibromyalgia; M19.90 Unspecified osteoarthritis, unspecified site; G89.29 Other chronic pain; M54.9 Dorsalgia, unspecified; E07.9 Disorder of thyroid, unspecified
CPT/HCPCS: 19125; 88307; 76098; 19281; J2250; J1644; J1100; J2405; J2001; J3010; J0330; J2704; J1170

== ENCOUNTER → 2018-09-04 | Outpatient (CLI) | payer MEDICARE, OTHER ==
--- NOTE | 2018-09-04 15:38 | P.PN ---
Progress Note - Text Progress Note Date: 09/04/18 Patient is a 52-year-old white female status [place] [id number]. The pathology is benign; it showed stromal fibrosis and duct cystic changes and focal sclerosing lesions. Negative for cancer or atypical duct hyperplasia like seen in the prior biopsy. The patient is doing well without complaints at this time. Physical examination: Incision clean and dry no evidence of infection or hematoma Plan: 1. Repeat right breast mammogram and physician exam in 6 months Cc: Dr. Valentine
[2018-09-04 16:02] VITALS: BP 127/90; PULSE 80; RESP 18; TEMP 97.8
== END | disposition home or self-care (01) ==
LOC: WWCWWP 15:30
PROVIDERS: ATTEND Surgery
DX: Z53.9 Procedure and treatment not carried out, unspecified reason (principal)

== ENCOUNTER → 2018-09-23 | Outpatient (CLI) | payer MEDICARE ==
--- NOTE | 2018-09-24 07:38 | US ---
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 Hx nodules and bx. Patient doesn't remember if she had nodules removed or thyroid. No thyroid meds. GLAND SIZE: Right Lobe: Right thyroid gland not visualized Left Lobe: 5.5 x 2.5 x 2.0 cm Overall Parenchyma: heterogeneous Isthmus Thickness: 0.6 cm NODULES: LEFT: # of nodules measured on left: 0 ISTHMUS: # of nodules measured in the isthmus: 0 Bilateral neck scanned, no evidence of lymphadenopathy. Left lobe appears enlarged and heterogenous. IMPRESSION: Right thyroid lobe appears surgically absent or significantly atrophic. The left thyroid gland is dif fusely heterogenous and enlarged with no measurable greater than 3 mm focal nodules.
== END | disposition home or self-care (01) ==
LOC: RADUSWWP 16:54
PROVIDERS: ATTEND Family Medicine
DX: E04.2 Nontoxic multinodular goiter (principal)
CPT/HCPCS: 76536

== ENCOUNTER → 2019-03-05 | Outpatient (CLI) | payer MEDICARE, OTHER ==
--- NOTE | 2019-03-08 08:04 | MM ---
Reason for exam: follow-up at short interval from prior study. Last mammogram was performed 8 months ago. History: Patient is postmenopausal, has history of high-risk lesion on a previous biopsy at age 52, and has history of endometrial cancer at age 31. Family history of breast cancer in mother and breast cancer in 3 aunts. Benign MG pre op needle loc RT of the right breast, August 25, 2018. High risk MG stereo VAD BX RT of the right breast, July 16, 2018. Benign US biopsy breast VAD RT of the right breast, July 16, 2018. Took hormonal contraceptives for 4 years. Physical Findings: Nurse did not find any significant physical abnormalities on exam. MG 3D Diag Mammo W/Cad RT CC and MLO view(s) were taken of the right breast. Prior study comparison: June 24, 2018, right breast MG 3d work up w/cad RT. June 12, 2018, bilateral MG 3d screening mammo w/cad. The breast tissue is heterogeneously dense. This may lower the sensitivity of mammography. Previous mammotome biopsy in the right breast. Post surgical scar upper outer quadrant right breast. Nodular asymmetry central right MLO view stable for 6 months. Follow up recommended. These results were verbally communicated with the patient and result sheet given to the patient on 03/05/19. ASSESSMENT: Probably benign, BI-RAD 3 RECOMMENDATION: Follow-up diagnostic mammogram of both breasts in 6 months. Back on schedule.
== END | disposition home or self-care (01) ==
LOC: RADMAMWWP 15:59
PROVIDERS: ATTEND Surgery
DX: R92.8 Other abnormal and inconclusive findings on diagnostic imaging of breast (principal)
CPT/HCPCS: 77065; G0279; 77061

== ENCOUNTER 2020-01-01 14:05 | Emergency (ER) | payer MEDICARE, OTHER ==
[2020-01-01 14:16] VITALS: RESP 18; TEMP 98.1
[2020-01-01] MEDS ORDERED: DEXAMETHASONE SOD PHOSPHATE 10 MG/ML 1 ML VIAL IV STA (14:25)
[2020-01-01] MEDS ORDERED: HYDROmorphone 0.5 MG/0.5 ML SYRINGE IVP STA (14:25)
--- NOTE | 2020-01-01 14:28 | ED ---
General Adult HPI - General Chief complaint: Recheck/Abnormal Lab/Rx Stated complaint: ms relapse Time Seen by Provider: 01/01/20 14:18 Source: patient Mode of arrival: ambulatory Limitations: no limitations - History of Present Illness Initial comments: Dictation was produced using [employer] dictation software. please excuse any grammatical, word or spelling errors. This patient was cared for during a federal and state declared state of emergency secondary to Covid 19 Chief Complaint: 54-year-old female presents with MS flare History of Present Illness: 54-year-old female she is a patient of Dr. Posey's the neurologist. Patient has been dealing with multiple sclerosis for several years. She does get infusions 2 times a year. Patient states she was due for an infusion last month however considering that several offices close recently due to the current pandemic she was not able to get her infusion. Patient states that she has been dealing with weakness. She also has total body pain. She states this is typical of her multiple sclerosis flares. Patient was last in the emergency department for an MS flare last year. Patient denies any pain complaints. Denies any nausea vomiting. No constitutional symptoms. The ROS documented in this emergency department record has been reviewed and confirmed by me. Those systems with pertinent positive or negative responses have been documented in the HPI. All other systems are other negative and/or noncontributory. PHYSICAL EXAM: General Impression: Alert and oriented x3, not in acute distress, generally weak HEENT: Normocephalic atraumatic, extra-ocular movements intact, pupils equal and reactive to light bilaterally, mucous membranes moist. Cardiovascular: Heart regular rate and rhythm Chest: Able to complete full sentences, no retractions, no tachypnea Abdomen: Bowel sounds present, abdomen soft, non-tender, non-distended, no organomegaly Musculoskeletal: Pulses present and equal in all extremities, no peripheral edema Motor: no focal deficits noted Neurological: CN II-XII grossly intact, no focal motor or sensory deficits noted Skin: Intact with no visualized rashes Psych: Normal affect and mood ED course: 54-year-old female presents with chief complaint of MS flare as upon arrival are within acceptable limits. Patient has no focal neurologic deficits. Patient given IV analgesia and IV steroids. Laboratory evaluation obtained. CBC, metabolic panel is unremarkable. She reevaluated and reports improvement of symptoms. Patient discharged with prescription for refill baclofen, prednisone and by mouth analgesia. She is strongly advised to follow-up with neurologist. EKG interpretation: Ventricular rate 69, normal sinus rhythm, CO interval 160, QRS 88, QTc 439. No CO prolongation, no QTC prolongation, no ST or T-wave changes noted. Overall, this EKG is unremarkable - Related Data Home Medications Medication Instructions Recorded Confirmed Baclofen 10 mg PO TID PRN 08/02/14 01/01/20 Butalb/APAP/Caff 50-325-40Mg 1 tab PO Q8H PRN 01/01/20 01/01/20 [Fioricet 50-325-40] DULoxetine HCL [Cymbalta] 60 mg PO DAILY 01/01/20 01/01/20 Methylphenidate HCl [Ritalin] 10 mg PO DAILY 01/01/20 01/01/20 Naproxen 500 mg PO BID PRN 01/01/20 01/01/20 Pregabalin [Lyrica] 150 mg PO BID 01/01/20 01/01/20 Previous Rx's Medication Instructions Recorded Baclofen [Lioresal] 10 mg PO TID PRN #12 tablet 01/01/20 HYDROcodone/APAP 5-325MG [Aurora 1 tab PO Q6HR PRN 3 Days #12 tab 01/01/20 5-325] methylPREDNISolone [Medrol Dose 4 mg PO DIRECTED #1 pack 01/01/20 Pack] Allergies Allergy/AdvReac Type Severity Reaction Status Date / Time No Known Allergies Allergy Verified 01/01/20 14:44 Review of Systems ROS Statement: Those systems with pertinent positive or pertinent negative responses have been documented in the HPI. ROS Other: All systems not noted in ROS Statement are negative. Past Medical History Past Medical History: Fibromyalgia, Neurologic Disorder, Osteoarthritis (OA), Skin Disorder, Thyroid Disorder Additional Past Medical History / Comment(s): Hx Psoriasis, arthritis, MULTIPLE SCLEROSIS, VERTIGO, chronic back pain History of Any Multi-Drug Resistant Organisms: None Reported Past Surgical History: Hysterectomy Additional Past Surgical History / Comment(s): Partial thyroidectomy Past Anesthesia/Blood Transfusion Reactions: No Reported Reaction Past Psychological History: Anxiety, Depression Smoking Status: Current every day smoker Past Alcohol Use History: Occasional Past Drug Use History: None Reported, Marijuana - Past Family History Mother Family Medical History: Cancer General Exam Limitations: no limitations Course Vital Signs 01/01/20 14:12 Temperature 98.1 F Pulse Rate 74 Respiratory 18 Rate Blood Pressure 118/71 O2 Sat by Pulse 98 Oximetry Medical Decision Making - Lab Data Result diagrams: 01/01/20 14:31 01/01/20 14:31 Lab Results 01/01/20 01/01/20 Range/Units 14:31 14:31 WBC 5.1 (3.8-10.6) k/uL RBC 4.58 (3.80-5.40) m/uL Hgb 14.2 (11.4-16.0) gm/dL Hct 44.2 (34.0-46.0) % MCV 96.5 (80.0-100.0) fL MCH 31.1 (25.0-35.0) pg MCHC 32.2 (31.0-37.0) g/dL RDW 13.1 (11.5-15.5) % Plt Count 290 (150-450) k/uL Neutrophils % 58 % Lymphocytes % 29 % Monocytes % 6 % Eosinophils % 3 % Basophils % 1 % Neutrophils # 3.0 (1.3-7.7) k/uL Lymphocytes # 1.5 (1.0-4.8) k/uL Monocytes # 0.3 (0-1.0) k/uL Eosinophils # 0.2 (0-0.7) k/uL Basophils # 0.0 (0-0.2) k/uL Sodium 140 (137-145) mmol/L Potassium 4.1 (3.5-5.1) mmol/L Chloride 106 (98-107) mmol/L Carbon Dioxide 26 (22-30) mmol/L Anion Gap 8 mmol/L BUN 20 H (7-17) mg/dL Creatinine 0.63 (0.52-1.04) mg/dL Est GFR (CKD-EPI)AfAm >90 (>60 ml/min/1.73 sqM) Est GFR (CKD-EPI)NonAf >90 (>60 ml/min/1.73 sqM) Glucose 116 H (74-99) mg/dL Calcium 9.7 (8.4-10.2) mg/dL Magnesium 2.2 (1.6-2.3) mg/dL Disposition Clinical Impression: Multiple sclerosis Disposition: HOME SELF-CARE Condition: Good Instructions (If sedation given, give patient instructions): Multiple Sclerosis (DC) Prescriptions: Baclofen [Lioresal] 10 mg PO TID PRN #12 tablet PRN Reason: Pain methylPREDNISolone [Medrol Dose Pack] 4 mg PO DIRECTED #1 pack HYDROcodone/APAP 5-325MG [Aurora 5-325] 1 tab PO Q6HR PRN 3 Days #12 tab PRN Reason: Severe Pain Is patient prescribed a controlled substance at d/c from ED?: Yes If prescribed controlled substance>3 days was MAPS reviewed?: Prescribed <3 Days Referrals: Jolynn Posey MD [Family Provider] - 1-2 days Time of Disposition: 15:04
[2020-01-01 14:44] LABS: Basophils % (A) 1 %; Eosinophils # (A) 0.2 k/uL (0-0.7); Eosinophils % (A) 3 %; HCT 44.2 % (34.0-46.0); HGB 14.2 gm/dL (11.4-16.0); Lymphocytes # (A) 1.5 k/uL (1.0-4.8); Lymphocytes % (A) 29 %; MCH 31.1 pg (25.0-35.0); MCHC 32.2 g/dL (31.0-37.0); MCV 96.5 fL (80.0-100.0); Mean Platelet Volume 7.9; Monocytes # (A) 0.3 k/uL (0-1.0); Monocytes % (A) 6 %; Neutrophils % (A) 58 %; Platelet Count 290 k/uL (150-450); RBC 4.58 m/uL (3.80-5.40); RDW 13.1 % (11.5-15.5); WBC 5.1 k/uL (3.8-10.6)
[2020-01-01 14:49] LABS: African American GFR (CKD) >90 (>60 ml/min/1.73 sqM); Anion Gap 8 mmol/L; Blood Urea Nitrogen 20 mg/dL (7-17); Calcium 9.7 mg/dL (8.4-10.2); Carbon Dioxide 26 mmol/L (22-30); Chloride 106 mmol/L (98-107); Glucose 116 mg/dL (74-99); Magnesium 2.2 mg/dL (1.6-2.3); Non-African American GFR(CKD) >90 (>60 ml/min/1.73 sqM); Potassium 4.1 mmol/L (3.5-5.1); Sodium 140 mmol/L (137-145)
[2020-01-01 15:19] VITALS: BP 122/68; PULSE 70
== END 2020-01-01 15:19 | disposition home or self-care (01) ==
LOC: EC 14:05
DX: G35 Multiple sclerosis (principal); M79.7 Fibromyalgia; M19.90 Unspecified osteoarthritis, unspecified site; E07.9 Disorder of thyroid, unspecified; F41.9 Anxiety disorder, unspecified; F32.9 Major depressive disorder, single episode, unspecified; F17.200 Nicotine dependence, unspecified, uncomplicated; Z90.89 Acquired absence of other organs; Z79.1 Long term (current) use of non-steroidal anti-inflammatories (NSAID); Z79.899 Other long term (current) drug therapy
CPT/HCPCS: 36415; 93005; 80048; 83735; 85025; 99285; 96374; 96375; J1100; J1170

== ENCOUNTER → 2020-06-03 | Outpatient (CLI) | payer MEDICARE ==
--- NOTE | 2020-06-03 14:42 | MR ---
EXAMINATION TYPE: MR brain wo/w con DATE OF EXAM: 06/03/2020 COMPARISON: 03/21/2018 HISTORY: F/U MS Weakness CONTRAST: Standard multiplanar, multisequence MRI departmental protocol utilizing 6.5 mL intravenous Gadavist g adolinium contrast. There is mild cerebral atrophy. There is no mass effect nor midline shift. There is no sign of intrac ranial hemorrhage. Diffusion images show no evidence of acute infarct. There are numerous foci of abnormal increased signal on the T2 and FLAIR images in the periventricula r white matter. These are coalescent in some places and measure up to 1.5 cm. Total number is more th an 25. These are concentrated more in the centrum semiovale. There is some thinning of the corpus fred losum. The brainstem is intact. Cerebellum is intact. There is no evidence of posterior fossa mass. Contrast images show no pathologic enhancement. There is normal enhancement of the venous sinuses. Se lla turcica appears normal. Optic chiasm appears normal. There is no evidence of orbital mass. IMPRESSION: Extensive white matter disease around the lateral ventricles consistent with demyelinating disease th at overall is not significantly different than previous exam. No new lesions identified.
== END | disposition home or self-care (01) ==
LOC: RADMRIMAIN 12:26
PROVIDERS: ATTEND Psychiatry & Neurology Neurology
DX: G37.9 Demyelinating disease of central nervous system, unspecified (principal); G35 Multiple sclerosis; R90.82 White matter disease, unspecified
CPT/HCPCS: 70553; A9585

== ENCOUNTER → 2020-09-26 | Outpatient (CLI) | payer SELFPAY ==
--- NOTE | 2020-09-27 07:01 | US ---
EXAMINATION TYPE: US thyroid st tissue head/neck DATE OF EXAM: 09/26/2020 COMPARISON: US 2019 CLINICAL HISTORY: E04.1 Nontoxic single thyroid nodule. Enlarged thyroid, history of right thyroidect gilmar GLAND SIZE: Left Lobe: 6.1 x 2.0 x 2.4 cm Overall Parenchyma: heterogeneous Isthmus Thickness: 0.2 cm NODULES RIGHT: surgically absent LEFT: # of nodules measured on left: 0 ISTHMUS: # of nodules measured in the isthmus: 0 Bilateral neck scanned, no evidence of lymphadenopathy. Persistent absent right thyroid and heterogeneous slightly enlarged left thyroid lobe. IMPRESSION: As above. No significant change from most recent prior.
== END | disposition home or self-care (01) ==
LOC: RADUSWWP 16:59
PROVIDERS: ATTEND Family Medicine
DX: E04.1 Nontoxic single thyroid nodule (principal); Z98.890 Other specified postprocedural states
CPT/HCPCS: 76536

== ENCOUNTER → 2022-03-12 | Outpatient (CLI) | payer MEDICARE | END | disposition home or self-care (01) | LOC: CPPFTMAIN 07:26 | PROVIDERS: ATTEND Family Medicine | DX: R06.00 Dyspnea, unspecified (principal) | CPT/HCPCS: 94060; 94726; 94729 ==

== ENCOUNTER 2022-09-16 17:15 | Observation (INO) | payer MEDICARE, OTHER ==
[2022-09-16 18:03] VITALS: RESP 18
--- NOTE | 2022-09-16 20:39 | ED ---
General Adult HPI - General Chief complaint: Fall Stated complaint: Multiple Falls, Head Injury Time Seen by Provider: 09/16/22 20:17 Source: patient Mode of arrival: ambulatory Limitations: no limitations - History of Present Illness Initial comments: Dictation was produced using [employer] dictation software. please excuse any grammatical, word or spelling errors. Chief Complaint: 57-year-old female presents emergency department for head pain after multiple falls History of Present Illness: Patient is a 57-year-old female she has had pain. She is had multiple falls over the past several weeks. She fell 3 times. Patient on any anticoagulation medication. States that she feels like she is unsteady on her gait. She has a history of multiple sclerosis being managed by neurologist. She feels at baseline currently. She feels like she is falling because she gets lightheaded whenever she stands up quickly. The ROS documented in this emergency department record has been reviewed and confirmed by me. Those systems with pertinent positive or negative responses have been documented in the HPI. All other systems are other negative and/or noncontributory. PHYSICAL EXAM: General Impression: Alert and oriented x3, not in acute distress HEENT: Normocephalic atraumatic, extra-ocular movements intact, pupils equal and reactive to light bilaterally, mucous membranes moist. Cardiovascular: Heart regular rate and rhythm Chest: Able to complete full sentences, no retractions, no tachypnea Abdomen: abdomen soft, non-tender, non-distended, no organomegaly Musculoskeletal: Pulses present and equal in all extremities, no peripheral edema Motor: no focal deficits noted Neurological: CN II-XII grossly intact, no focal motor or sensory deficits noted Skin: Intact with no visualized rashes Psych: Normal affect and mood ED course: 57-year-old female past medical history of multiple sclerosis presents to emergency room with head pain after having had multiple falls over the last several days. Signs upon arrival are within acceptable limits. Patient showing no neurologic deficits. Patient has no signs of trauma. Nursing notes and chart review was performed Patient had positive orthostatic vital signs. Blood pressure lying flat is 161/93 with a heart rate of 73. Standing her blood pressure is 125/94 with a heart rate of 93 with severe symptoms. Laboratory evaluation obtained. CBC Marple. Metabolic panel is negative. Computed tomography scan of the brain is unremarkable for any traumatic in juries. Disposition options were discussed. Patient is agreeable for observation admission with consultation to cardiology for syncope and orthostatic hypotension evaluation. - Related Data Home Medications Medication Instructions Recorded Confirmed Baclofen 10 mg PO QID PRN 08/02/14 09/16/22 DULoxetine HCL [Cymbalta] 60 mg PO BID 01/01/20 09/16/22 Methylphenidate HCl [Ritalin] 10 mg PO BID 01/01/20 09/16/22 Pregabalin [Lyrica] 150 mg PO TID 01/01/20 09/16/22 HYDROcodone/APAP 7.5-325MG [Teachey 1 tab PO BID 09/16/22 09/16/22 7.5-325] Zonisamide [Zonegran] 200 mg PO HS 09/16/22 09/16/22 buPROPion SR [Wellbutrin SR] 150 mg PO BID 09/16/22 09/16/22 Allergies Allergy/AdvReac Type Severity Reaction Status Date / Time No Known Allergies Allergy Verified 09/16/22 21:33 Review of Systems ROS Statement: Those systems with pertinent positive or pertinent negative responses have been documented in the HPI. ROS Other: All systems not noted in ROS Statement are negative. Past Medical History Past Medical History: Fibromyalgia, Neurologic Disorder, Osteoarthritis (OA), Skin Disorder, Thyroid Disorder Additional Past Medical History / Comment(s): Hx Psoriasis, arthritis, MULTIPLE SCLEROSIS, VERTIGO, chronic back pain History of Any Multi-Drug Resistant Organisms: None Reported Past Surgical History: Hysterectomy Additional Past Surgical History / Comment(s): Partial thyroidectomy Past Anesthesia/Blood Transfusion Reactions: No Reported Reaction Past Psychological History: Anxiety, Depression Smoking Status: Current every day smoker Past Alcohol Use History: Occasional Past Drug Use History: None Reported, Marijuana - Past Family History Mother Family Medical History: Cancer General Exam Limitations: no limitations Course Vital Signs 09/16/22 09/16/22 17:58 21:16 Temperature 97.9 F Pulse Rate 99 Pulse Rate [ 93 Pulse Oximetery ] Respiratory 18 18 Rate Blood Pressure 148/74 Blood Pressure 125/94 [Left Arm] O2 Sat by Pulse 95 95 Oximetry Medical Decision Making - Lab Data Result diagrams: 09/16/22 21:12 09/16/22 21:12 Lab Results 09/16/22 09/16/22 Range/Units 21:12 21:12 WBC 8.4 (3.8-10.6) k/uL RBC 4.52 (3.80-5.40) m/uL Hgb 14.5 (11.4-16.0) gm/dL Hct 42.8 (34.0-46.0) % MCV 94.7 (80.0-100.0) fL MCH 32.0 (25.0-35.0) pg MCHC 33.8 (31.0-37.0) g/dL RDW 12.1 (11.5-15.5) % Plt Count 306 (150-450) k/uL MPV 8.1 Neutrophils % 51 % Lymphocytes % 30 % Monocytes % 4 % Eosinophils % 13 % Basophils % 1 % Neutrophils # 4.2 (1.3-7.7) k/uL Lymphocytes # 2.5 (1.0-4.8) k/uL Monocytes # 0.4 (0-1.0) k/uL Eosinophils # 1.1 H (0-0.7) k/uL Basophils # 0.1 (0-0.2) k/uL Sodium 140 (137-145) mmol/L Potassium 3.6 (3.5-5.1) mmol/L Chloride 107 (98-107) mmol/L Carbon Dioxide 24 (22-30) mmol/L Anion Gap 9 mmol/L BUN 19 H (7-17) mg/dL Creatinine 0.62 (0.52-1.04) mg/dL Est GFR (CKD-EPI)AfAm >90 (>60 ml/min/1.73 sqM) Est GFR (CKD-EPI)NonAf >90 (>60 ml/min/1.73 sqM) Glucose 89 (74-99) mg/dL Calcium 9.6 (8.4-10.2) mg/dL Magnesium 2.2 (1.6-2.3) mg/dL Disposition Clinical Impression: Orthostasis, Syncope Disposition: ADMITTED IP TO THIS [facility] Condition: Fair Referrals: Boston Valentine DO [Primary Care Provider] - 1-2 days Time of Disposition: 22:42
[2022-09-16] MEDS ORDERED: SODIUM CHLORIDE 0.9% 1,000 ML IV STA (21:19)
[2022-09-16 21:21] LABS: Basophils # (A) 0.1 k/uL (0-0.2); Basophils % (A) 1 %; Eosinophils # (A) 1.1 k/uL (0-0.7); Eosinophils % (A) 13 %; HCT 42.8 % (34.0-46.0); HGB 14.5 gm/dL (11.4-16.0); Lymphocytes # (A) 2.5 k/uL (1.0-4.8); Lymphocytes % (A) 30 %; MCHC 33.8 g/dL (31.0-37.0); MCV 94.7 fL (80.0-100.0); Mean Platelet Volume 8.1; Monocytes # (A) 0.4 k/uL (0-1.0); Monocytes % (A) 4 %; Neutrophils # (A) 4.2 k/uL (1.3-7.7); Neutrophils % (A) 51 %; Platelet Count 306 k/uL (150-450); RBC 4.52 m/uL (3.80-5.40); RDW 12.1 % (11.5-15.5); WBC 8.4 k/uL (3.8-10.6)
[2022-09-16 21:29] LABS: African American GFR (CKD) >90 (>60 ml/min/1.73 sqM); Anion Gap 9 mmol/L; Blood Urea Nitrogen 19 mg/dL (7-17); Calcium 9.6 mg/dL (8.4-10.2); Carbon Dioxide 24 mmol/L (22-30); Chloride 107 mmol/L (98-107); Glucose 89 mg/dL (74-99); Magnesium 2.2 mg/dL (1.6-2.3); Non-African American GFR(CKD) >90 (>60 ml/min/1.73 sqM); Potassium 3.6 mmol/L (3.5-5.1); Sodium 140 mmol/L (137-145)
--- NOTE | 2022-09-16 21:32 | CT ---
EXAMINATION TYPE: CT brain cspine wo con CT DLP: 1273.2 mGycm, Automated exposure control for dose reduction was used. DATE OF EXAM: 09/16/2022 9:11 PM COMPARISON: 05/12/2018. CLINICAL INDICATION:Female, 57 years old with history of falls; dizziness with falls for the past wee k. TECHNIQUE: Brain: Multiple axial CT images of the brain were obtained without IV contrast. Cspine: Axial CT images from the skull base to the inferior aspect of T2 we obtained without intraven ous contrast. Coronal and sagittal reformatted images were also reviewed. FINDINGS: Brain: Extra-axial spaces: No abnormal extra-axial fluid collections. Ventricular system: Within normal limits Cerebral parenchyma: No acute intraparenchymal hemorrhage or mass effect. The pineda-white junction is well differentiated. Cerebellum: Unremarkable. Mass effect: No evidence of midline shift. Intracranial vasculature: unremarkable Soft tissues: Normal. Calvarium/osseous structures: No depressed skull fracture. Paranasal sinuses and mastoid air cells: Clear. Visualized orbits: Orbital contents are intact. Cervical spine: Fracture: None. Osseous structures: Multilevel degenerative disc disease changes with endplate spurring and disc oste ophyte complex's. Nonfusion of the posterior arch of C1. Vertebral alignment: Within normal limits. Spinal canal/Neural Foramina: No evidence of significant spinal canal narrowing. No evidence for sign ificant neural foraminal stenosis. Neck soft tissues: Prevertebral soft tissues are within normal limits. Other: The airway is patent. Mild paraseptal emphysema changes are seen in the lung apices. Enlarged left thyroid gland. IMPRESSION: 1. No acute intracranial process. 2. Nonspecific white matter changes, likely secondary to chronic small vessel ischemic disease. 3. No evidence of cervical spine fracture. 4. Mild multilevel degenerative disc disease.
[2022-09-16] MEDS ORDERED: NALOXONE 0.4 MG/ML 1 ML VIAL IV PRN (22:40)
[2022-09-16] MEDS ORDERED: SODIUM CHLORIDE 0.9% 1,000 ML IV SCH (22:45)
[2022-09-17] MEDS ORDERED: MELATONIN 1 MG TAB PO SCH (00:15)
--- NOTE | 2022-09-17 09:07 | P.CRDCN ---
History of Present Illness Consult date: 09/17/22 Consult reason: sycope History of present illness: HISTORY OF PRESENT ILLNESS This is a 57-year-old female with past medical history of MS and follows with Dr. Posey, tobacco use and dependence. 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 Patient has history of being diagnosed in 2005 with MS. She follows regularly with Dr. Posey and her last appointment was within the month. Patient has had 3 falls in the past week and has hit her head on these episodes. She does not recall any symptoms prior to syncope but states she is having dizzy spells when she stands up quickly. Today she woke up in bed with a knot on her head and did not remember fall. She denies palpitations and no chest pain. She states she has some difficulty in breathing but is not usually physically active she is complaining of cough with white and yellow sputum production. She denies any loss of bladder control and afterward she does have some left-sided weakness which is common due to her MS. Patient states that she does have some shortness of breath when she is sleeping, she sleeps on one pillow. She does not have hypertension and her blood pressures usually on the low side. No history of diabetes. She denies any blood in her stools or urine. She is a smoker of half a pack per day. Orthostatics were positive in the emergency center and will be repeated. CBC is unremarkable. BMP unremarkable. Magnesium 2.2, potassium 3.6, troponin negative 1. CAT scan of the brain and cervical spine revealed no acute intracranial process and no evidence of cervical spine fracture. Mild multilevel degenerative disc disease and chronic small vessel ischemic disease. REVIEW OF SYSTEMS Constitutional: No fever, no chills. No weakness, fatigue or lethargy. EENT: No headache. No dizziness. Lungs: No shortness of breath, cough, no sputum production. No wheezing. Cardiovascular: No chest pain, no lower extremity edema. No palpitations. No paroxysmal nocturnal dyspnea. No orthopnea. No lightheadedness or dizziness. No syncopal episodes. Abdominal: No abdominal pain. No nausea, vomiting. No diarrhea. No constipation. No bloody or tarry stools. No loss of appetite. Genitourinary: No dysuria.. No urinary retention. Musculoskeletal: No myalgias. No muscle weakness, no gait dysfunction, no frequent falls. No back pain. No neck pain. Integumentary: No wounds, no lesions. No rash or pruritus. No unusual bruising. Neurologic: No aphasia. No facial droop. No change in mentation. No head injury. No headache. No paralysis. No paresthesia. Psychiatric: No depression. No anxiety. Endocrine: No abnormal blood sugars. PHYSICAL EXAMINATION Gen: This is a 57-year-old thin female. She is resting on ER stretcher and appears to be comfortable and in no acute distress. VS: reviewed and have been stable. Heart rate in the 70s to 90s, blood pressure 140/84, pulse ox 95% on room air. HEENT: Head is atraumatic, normocephalic. Pupils equal, round. Sclerae is anicteric. NECK: Supple. No JVD. No lymphadenopathy. No thyromegaly. LUNGS: Diminished breath sounds bilaterally with expiratory wheeze. No intercostal retractions. HEART: Regular rate and rhythm. No murmur. ABDOMEN: Soft. Bowel sounds are present. No masses. No tenderness. EXTREMITIES: No pedal edema. No calf tenderness. NEUROLOGICAL: Patient is awake, alert and oriented x3. ASSESSMENT Syncopal episodes do not appear to be cardiac related MS PLAN Recommend neurology evaluation Obtain EKG Repeat orthostatic vital signs Obtain 2-D echocardiogram and Doppler study to assess cardiac structure and function If symptoms continue, patient may have follow up as an outpatient and undergo tilt table test Smoking cessation Further recommendations to follow based upon clinical course Thank you kindly for this consultation. Nurse practitioner note has been reviewed, I agree with documented findings and plan of care. Patient was seen and examined. Past Medical History Past Medical History: Fibromyalgia, Neurologic Disorder, Osteoarthritis (OA), Skin Disorder, Thyroid Disorder Additional Past Medical History / Comment(s): Hx Psoriasis, arthritis, MULTIPLE SCLEROSIS, VERTIGO, chronic back pain History of Any Multi-Drug Resistant Organisms: None Reported Past Surgical History: Hysterectomy Additional Past Surgical History / Comment(s): Partial thyroidectomy Past Anesthesia/Blood Transfusion Reactions: No Reported Reaction Past Psychological History: Anxiety, Depression Smoking Status: Current every day smoker Past Alcohol Use History: Occasional Past Drug Use History: None Reported, Marijuana - Past Family History Mother Family Medical History: Cancer Medications and Allergies Home Medications Medication Instructions Recorded Confirmed Type Baclofen 10 mg PO QID PRN 08/02/14 09/16/22 History DULoxetine HCL [Cymbalta] 60 mg PO BID 01/01/20 09/16/22 History Methylphenidate HCl [Ritalin] 10 mg PO BID 01/01/20 09/16/22 History Pregabalin [Lyrica] 150 mg PO TID 01/01/20 09/16/22 History HYDROcodone/APAP 7.5-325MG [[place] 1 tab PO BID 09/16/22 09/16/22 History 7.5-325] Zonisamide [Zonegran] 200 mg PO HS 09/16/22 09/16/22 History buPROPion SR [Wellbutrin SR] 150 mg PO BID 09/16/22 09/16/22 History Allergies Allergy/AdvReac Type Severity Reaction Status Date / Time No Known Allergies Allergy Verified 09/16/22 21:33 Physical Exam Vitals: Vital Signs Temp Pulse Pulse Resp BP BP Pulse Ox 09/17/22 06:37 75 18 126/75 95 09/17/22 00:00 74 18 132/92 98 09/16/22 21:16 93 18 125/94 95 09/16/22 17:58 97.9 F 99 18 148/74 95 Intake and Output 09/16/22 09/17/22 09/17/22 22:59 06:59 14:59 Other: Weight 55.792 kg Results 09/16/22 21:12 09/16/22 21:12 Cardiac Enzymes 09/16/22 Range/Units 21:12 Troponin I <0.012 (0.000-0.034) ng/mL CBC 09/16/22 Range/Units 21:12 WBC 8.4 (3.8-10.6) k/uL RBC 4.52 (3.80-5.40) m/uL Hgb 14.5 (11.4-16.0) gm/dL Hct 42.8 (34.0-46.0) % Plt Count 306 (150-450) k/uL Comprehensive Metabolic Panel 09/16/22 Range/Units 21:12 Sodium 140 (137-145) mmol/L Potassium 3.6 (3.5-5.1) mmol/L Chloride 107 (98-107) mmol/L Carbon Dioxide 24 (22-30) mmol/L BUN 19 H (7-17) mg/dL Creatinine 0.62 (0.52-1.04) mg/dL Glucose 89 (74-99) mg/dL Calcium 9.6 (8.4-10.2) mg/dL Current Medications Generic Name Dose Route Start Last Admin Trade Name Freq PRN Reason Stop Dose Admin Sodium Chloride 1,000 mls @ 20 mls/hr 09/16/22 22:45 09/17/22 00:32 Saline 0.9% IV 20 mls/hr .Q24H JULIANNE Administration Melatonin 2 mg 09/17/22 00:15 09/17/22 00:31 Melatonin 1 Mg Tab PO 2 mg HS JULIANNE Administration Naloxone HCl 0.2 mg 09/16/22 22:40 Naloxone 0.4 Mg/Ml 1 Ml Vial IV Q2M PRN Opioid Reversal Intake and Output 09/16/22 09/17/22 09/17/22 22:59 06:59 14:59 Other: Weight 55.792 kg 09/16/22 21:12 09/16/22 21:12
[2022-09-17] MEDS ORDERED: BACLOFEN 10 MG TAB PO PRN (09:57)
[2022-09-17] MEDS ORDERED: HYDROcodone/APAP 7.5-325MG 1 EACH TAB PO SCH (10:00)
[2022-09-17] MEDS ORDERED: buPROPion SR 150 MG TABLET.ER PO SCH (10:00)
[2022-09-17] MEDS ORDERED: DULoxetine HCL 60 MG CAPSULE.DR PO SCH (10:00)
[2022-09-17] MEDS: PREGABALIN 75 MG CAP PO SCH ×2 (10:21→15:40)
[2022-09-17] MEDS: METHYLPHENIDATE HCL 10 MG TAB PO SCH ×2 (10:21→15:40)
--- NOTE | 2022-09-17 12:42 | P.CNNES ---
History of Present Illness Consult date: 09/17/22 Requesting physician: Jennifer Peña Reason for Consult: syncope, see neuro o/p MS History of Present Illness: Patient is a 57-year-old female came to the hospital yesterday at 5:15 PM Vital signs on arrival to pressure 148/74, pulse rate 99, temperature 97.9. Blood test shows normal CBC, normal Chem-7. CT head showed no acute intracranial process. Nonspecific white matter changes, likely secondary to chronic small vessel ischemic disease. I personally reviewed CT head, agree with the findings. CT of the cervical spine showed no evidence of cervical spine fracture. Mild multiL-2 level degenerative disc disease. Patient had a prior MRI of the brain performed 06/03/2020 which revealed extensive white lauro er disease around the lateral ventricles consistent with demyelinating disease that overall is not significantly different than previous exam. No new lesions were identified. Patient had orthostatics checked the ER, which were positive. Supine blood pressure was 161/93 with heart rate of 73. On standing up, her blood pressure was 125/94 with pulse rate of 93 with severe symptoms. Patient's home medications include baclofen 10 mg 4 times a day, [place] 150 g 3 times a day, Ritalin 10 mg twice a day, Cymbalta 61 g twice a day, zonisamide 200 mg at bedtime, Wellbutrin 150 mg twice a day and [place]. Past Medical History Past Medical History: Fibromyalgia, Neurologic Disorder, Osteoarthritis (OA), Skin Disorder, Thyroid Disorder Additional Past Medical History / Comment(s): Hx Psoriasis, arthritis, MULTIPLE SCLEROSIS, VERTIGO, chronic back pain History of Any Multi-Drug Resistant Organisms: None Reported Past Surgical History: Hysterectomy Additional Past Surgical History / Comment(s): Partial thyroidectomy Past Anesthesia/Blood Transfusion Reactions: No Reported Reaction Past Psychological History: Anxiety, Depression Smoking Status: Current every day smoker Past Alcohol Use History: Occasional Past Drug Use History: None Reported, Marijuana - Past Family History Mother Family Medical History: Cancer Medications and Allergies Home Medications Medication Instructions Recorded Confirmed Type Baclofen 10 mg PO QID PRN 08/02/14 09/16/22 History DULoxetine HCL [Cymbalta] 60 mg PO BID 01/01/20 09/16/22 History Methylphenidate HCl [Ritalin] 10 mg PO BID 01/01/20 09/16/22 History Pregabalin [Lyrica] 150 mg PO TID 01/01/20 09/16/22 History HYDROcodone/APAP 7.5-325MG [[place] 1 tab PO BID 09/16/22 09/16/22 History 7.5-325] Zonisamide [Zonegran] 200 mg PO HS 09/16/22 09/16/22 History buPROPion SR [Wellbutrin SR] 150 mg PO BID 09/16/22 09/16/22 History Allergies Allergy/AdvReac Type Severity Reaction Status Date / Time No Known Allergies Allergy Verified 09/16/22 21:33 Physical Examination - Vital Signs Vital Signs: Vital Signs Temp Pulse Pulse Resp BP BP Pulse Ox 09/17/22 08:32 73 18 140/84 73 L 09/17/22 08:00 93 09/17/22 06:37 75 18 126/75 95 09/17/22 00:00 74 18 132/92 98 09/16/22 21:16 93 18 125/94 95 09/16/22 17:58 97.9 F 99 18 148/74 95 Intake and Output 09/16/22 09/17/22 09/17/22 22:59 06:59 14:59 Other: Voiding Method Toilet Weight 55.792 kg 55.792 kg Results - Laboratory Findings CBC and BMP: 09/16/22 21:12 09/16/22 21:12 Abnormal Lab Findings: Abnormal Labs 09/16/22 09/16/22 21:12 21:12 Eosinophils # 1.1 H BUN 19 H Assessment and Plan Assessment: * Recurrent falls, 3, couple of them associated with loss of awareness. Rule out syncope versus seizure. * Positional vertigo, probable BPPV. Patient's examination is nonfocal. No definitive evidence of MS flareup. * Multiple sclerosis * Orthostatics * Tobacco use Plan: * Check orthostatics * EEG to rule out seizure activity * Carotid Doppler * Cardiology on board. Recommending echo. * Meclizine as needed for BPPV. * Suggest stopping Wellbutrin, as it can lower seizure threshold. * Recommended tobacco cessation. * Neurology will follow. Thank you for the consult. Addendum: Orthostatics were checked. Supine blood pressure 157/83, sitting 161/91, standing 152/98.
--- NOTE | 2022-09-17 13:51 | US ---
EXAMINATION TYPE: US carotid duplex BILAT DATE OF EXAM: 09/17/2022 COMPARISON: NONE CLINICAL HISTORY: 57-year-old female Syncope vs seizure. TECHNIQUE: Carotid duplex ultrasound examination. Indirect Doppler criteria was utilized. FINDINGS: EXAM MEASUREMENTS: RIGHT: Peak Systolic Velocity (PSV) cm/sec ----- Right CCA: 79.3 ----- Right ICA: 104 ----- Right ECA: 75.4 ICA/CCA ratio: 1.3 RIGHT: End Diastole cm/sec ----- Right CCA: 22.1 ----- Right ICA: 39.0 ----- Right ECA: 14.9 LEFT: Peak Systolic Velocity (PSV) cm/sec ----- Left CCA: 70.9 ----- Left ICA: 112.0 ----- Left ECA: 399 (there is an adjacent vein showing appropriate blue color flow running along the stenotic artery). ICA/CCA ratio: 1.6 LEFT: End Diastole cm/sec ----- Left CCA: 24.7 ----- Left ICA: 27.7 ----- Left ECA: 82.6 VERTEBRALS (direction of flow): Right Vertebral: Antegrade Left Vertebral: Antegrade Rhythm: Normal PLANNING AND ANALYSIS MANAGER NOTES: Mild atherosclerotic changes on right. Left ICA shows no significant velocity increase, Left ECA show s significant stenosis. IMPRESSION: 1. No hemodynamically significant internal carotid artery stenosis on either side. 2. However, there is a severe stenosis at the origin of the left ECA. Criteria for Assigning % of Stenosis / Diameter reduction (Estimation based on the indirect measurements of the internal carotid artery velocities (ICA PSV). 1. Normal (no stenosis)=ICA PSV < 125 cm/s: ratio < 2.0: ICA EDV<40 cm/s. 2. Less than 50% stenosis=ICA PSV < 125 cm/s: ratio < 2.0: ICA EDV<40 cm/s. 3. 50 to 69% stenosis=ICA PSV of 125 to 230 cm/s: ration 2.0 ? 4.0: ICA EDV 40-100 cm/s. 4. Greater than 70% stenosis to near occlusion= ICA PSV > 230 cm/s: ratio > 4.0: ICA EDV > 100 cm/s. 5. Near occlusion= ICA PSV velocities may be low or undetectable: variable ratio and ICA EDV. 6. Total occlusion=unable to detect flow.
[2022-09-17 14:52] VITALS: TEMP 97.7
[2022-09-17 17:44] VITALS: BP 157/83; PULSE 75
[2022-09-17] MEDS ORDERED: ZONISAMIDE 100 MG CAP PO SCH (21:00)
--- NOTE | 2022-09-17 23:25 | HP ---
HISTORY AND PHYSICAL This is a combined history and physical and discharge summary. CHIEF COMPLAINT: Syncope. HISTORY OF PRESENT ILLNESS: This is a 57-year-old woman with a past medical history of multiple medical problems including multiple sclerosis and fibromyalgia, was admitted with recurrent falls and episode of syncope. Cardiology has seen the patient and Dr. Nieto has recommended Neurology evaluation, and Dr. Resendiz's evaluation is in process also. There is no history of any fever, rigors, or chills. PAST MEDICAL HISTORY: Reviewed, include multiple sclerosis. The rest of the chart is also reviewed. HOME MEDICATIONS: Zonegran. Dose and rest of medications noted. ALLERGIES: None. FAMILY HISTORY: History of cancer. SOCIAL HISTORY: History of smoking. REVIEW OF SYSTEM: A 14-point review of systems is negative except as mentioned earlier. PHYSICAL EXAMINATION: VITAL SIGNS: Pulse is 75, blood pressure 120/75, respirations 18. HEENT: Conjunctivae normal. NECK: No JVD. CARDIOVASCULAR: S1, S2 muffled. RESPIRATIONS: Breath sounds diminished at the bases. No rhonchi. No crackles. ABDOMEN: Soft, nontender. NERVOUS SYSTEM: Diffusely weak. SKIN: No ulcer, rash, bleeding. JOINTS: No active deforming arthropathy. LABORATORY DATA: CBC within normal limits. And D-dimer is 0.24. ASSESSMENT: 1. Syncope, possibly vasovagal. 2. History of recurrent falls. 3. Multiple sclerosis. 4. History of fibromyalgia. 5. History of psoriasis. 6. Anxiety and depression. 7. Multiple medical issues. RECOMMENDATIONS AND DISCUSSION: This is a 57-year-old woman who presented with syncope, has improved significantly. Cardiology and Neurology have seen the patient. The patient will be discharged home if cleared by Cardiology and Neurology. The CT scan which I reviewed personally showed no acute abnormality. Otherwise, the patient will be discharged basically on the home medications. Please see the discharge medication reconciliation for details of medications. MMODL / IJN: [id number] /
--- NOTE | 2022-09-18 00:49 | EEG ---
ELECTROENCEPHALOGRAM REPORT PREAMBLE: This is a 57-year-old female with syncope versus seizure. The patient also has MS. This study is performed to evaluate for any epileptiform activity. EEG FINDINGS: This is a 21-channel digital EEG recorded with video component, utilizing 10/20 international system with referential and bipolar montages. Background consists of well developed, well regulated [id number] amplitude activity in mixed frequencies of 8 to 9 hertz alpha, with some fast frequency beta activity seen in bihemispheric region. Background is posterior dominant and reactive to eye opening and closing. Photic driving response was seen with some flash frequencies. Some drowsiness was seen with appearance of bilaterally symmetric theta frequency rhythm. Deeper stages of sleep were not seen. No focal or generalized epileptiform activity was seen. EKG channel showed no obvious arrhythmia. IMPRESSION: This is a normal awake and drowsy EEG. No focal, lateralized, or epileptiform activity was seen. MMMALDONADOL / IJN: [id number] /
== END 2022-09-17 18:11 | disposition home or self-care (01) ==
LOC: EC 17:15 → 6NMEDSUR 22:40
PROVIDERS: ADMIT Hospitalist; ATTEND Hospitalist
DX: R55 Syncope and collapse (principal); R29.6 Repeated falls; G35 Multiple sclerosis; M79.7 Fibromyalgia; H81.10 Benign paroxysmal vertigo, unspecified ear; M19.90 Unspecified osteoarthritis, unspecified site; F32.A Depression, unspecified; F41.9 Anxiety disorder, unspecified; E89.0 Postprocedural hypothyroidism; G89.29 Other chronic pain; M54.9 Dorsalgia, unspecified; L40.9 Psoriasis, unspecified; F17.200 Nicotine dependence, unspecified, uncomplicated; Z79.899 Other long term (current) drug therapy
CPT/HCPCS: 96360; 96361 ×2; 99285; 36415; 95816; 93005; 85379; 80048; 83735; 84484; 85025; 93880; 72125; 70450; G0378 ×2; S0106

== ENCOUNTER 2024-02-08 13:13 | Emergency (ER) | payer MEDICARE, OTHER ==
--- NOTE | 2024-02-08 13:26 | ED ---
General Adult HPI - General Chief complaint: Syncope Stated complaint: Syncope Time Seen by Provider: 02/08/24 13:15 Source: patient, RN notes reviewed Limitations: no limitations - History of Present Illness Initial comments: Patient is a 58-year-old female present to the emergency department with syncopal episode. Patient was doing gardening at the time. Patient did have a marijuana gummy as well as was using her marijuana pen. Patient felt that it was warm. Patient wanted to go into the house to cool down however and said she passed out. Patient does have a distant history of similar episode approximately 3 times prior to this with similar circumstances. Patient feels normal at this time and has no complaints. No head injury. No injury. No chest or back pain. No abdominal pain. No headache or weakness or confusion. - Related Data Home Medications Medication Instructions Recorded Confirmed Baclofen 10 mg PO QID PRN 08/02/14 09/16/22 DULoxetine HCL [Cymbalta] 60 mg PO BID 01/01/20 09/16/22 Methylphenidate HCl [Ritalin] 10 mg PO BID 01/01/20 09/16/22 Pregabalin [Lyrica] 150 mg PO TID 01/01/20 09/16/22 HYDROcodone/APAP 7.5-325MG [[employer] 1 tab PO BID 09/16/22 09/16/22 7.5-325] Zonisamide [Zonegran] 200 mg PO HS 09/16/22 09/16/22 buPROPion SR [Wellbutrin SR] 150 mg PO BID 09/16/22 09/16/22 Allergies Allergy/AdvReac Type Severity Reaction Status Date / Time No Known Allergies Allergy Verified 02/08/24 13:21 Review of Systems ROS Statement: Those systems with pertinent positive or pertinent negative responses have been documented in the HPI. ROS Other: All systems not noted in ROS Statement are negative. Constitutional: Denies: fever Eyes: Denies: eye pain ENT: Denies: ear pain Respiratory: Denies: cough, dyspnea Cardiovascular: Denies: chest pain Endocrine: Denies: fatigue Gastrointestinal: Denies: abdominal pain Musculoskeletal: Denies: back pain Neurological: Denies: headache Past Medical History Past Medical History: Fibromyalgia, Neurologic Disorder, Osteoarthritis (OA), Skin Disorder, Thyroid Disorder Additional Past Medical History / Comment(s): Hx Psoriasis, arthritis, MULTIPLE SCLEROSIS, VERTIGO, chronic back pain History of Any Multi-Drug Resistant Organisms: None Reported Past Surgical History: Hysterectomy Additional Past Surgical History / Comment(s): Partial thyroidectomy Past Anesthesia/Blood Transfusion Reactions: No Reported Reaction Past Psychological History: Anxiety, Depression Smoking Status: Current every day smoker Past Alcohol Use History: Occasional Past Drug Use History: None Reported, Marijuana - Past Family History Mother Family Medical History: Cancer General Exam Limitations: no limitations General appearance: alert, in no apparent distress Head exam: Present: atraumatic, normocephalic Eye exam: Present: normal appearance, PERRL, EOMI ENT exam: Present: normal oropharynx Neck exam: Present: normal inspection. Absent: tenderness Respiratory exam: Present: normal lung sounds bilaterally Cardiovascular Exam: Present: regular rate, normal rhythm Expanded Peripheral pulses: 2+: Radial (R), Radial (L), Dorsalis Pedis (R), Dorsalis Pedis (L) GI/Abdominal exam: Present: soft. Absent: tenderness, pulsatile mass Extremities exam: Present: normal inspection Neurological exam: Present: alert, CN II-XII intact. Absent: motor sensory deficit Expanded Neurological exam: Present: protecting the airway Speech: Present: fluid speech Cranial nerves: EOM's Intact: Normal Motor strength exam: RUE: 5, LUE: 5, RLE: 5, LLE: 5 Eye Response: (4) open spontaneously Motor Response: (6) obeys commands Verbal Response: (5) oriented Psychiatric exam: Present: normal affect, normal mood Skin exam: Present: normal color Course Vital Signs 02/08/24 02/08/24 13:15 14:23 Temperature 98 F Pulse Rate 64 58 L Respiratory 18 20 Rate Blood Pressure 94/45 115/70 O2 Sat by Pulse 100 100 Oximetry EKG Findings - EKG Results: EKG: interpreted by ERMD (Right axis.), sinus rhythm, normal QRS, normal ST/T Medical Decision Making - Medical Decision Making Was pt. sent in by a medical professional or institution (, PA, PARTS ROOM ASSISTANT, urgent care, hospital, or [facility]...) When possible be specific @ -No Did you speak to anyone other than the patient for history (EMS, parent, family, police, friend...)? What history was obtained from this source @ -No Did you review nursing and triage notes (agree or disagree)? Why? @ -I reviewed and agree with nursing and triage notes Were old charts reviewed (outside hosp., previous admission, EMS record, old EKG, old radiological studies, urgent care reports/EKG's, [facility] records)? Report findings @ -No old charts were reviewed Differential Diagnosis (chest pain, altered mental status, abdominal pain women, abdominal pain men, vaginal bleeding, weakness, fever, dyspnea, syncope, headache, dizziness, GI bleed, back pain, seizure, CVA, palpatations, mental health, musculoskeletal)? @ -Differential Syncope: Valvular disease, hypertrophic cardiomyopathy, pulmonary embolism, tamponade, tachycardia, bradycardia, RI, hypovolemia, hemorrhage, dissection, anemia, intracranial hemorrhage, seizure, hypoglycemia, carbon monoxide poisoning, this is not meant to be an all-inclusive list. EKG interpreted by me (3pts min.). @ -As above X-rays interpreted by me (1pt min.). @ -Chest x-ray shows no acute process CT interpreted by me (1pt min.). @ -None done U/S interpreted by me (1pt. min.). @ -None done What testing was considered but not performed or refused? (CT, X-rays, U/S, labs)? Why? @ -None What meds were considered but not given or refused? Why? @ -None Did you discuss the management of the patient with other professionals (professionals i.e. , PA, PARTS ROOM ASSISTANT, lab, RT, psych nurse, social media community manager, middle school math teacher, teacher, chief green officer, rehabilitation caseworker)? Give summary @ -No Was smoking cessation discussed for >3mins.? @ -No Was critical care preformed (if so, how long)? @ -No Were there social determinants of health that impacted care today? How? (Homelessness, low income, unemployed, alcoholism, drug addiction, transportation, low edu. Level, literacy, decrease access to med. care, correction, rehab)? @ -No Was there de-escalation of care discussed even if they declined (Discuss DNR or withdrawal of care, Hospice)? DNR status @ -No What co-morbidities impacted this encounter? (DM, HTN, Smoking, COPD, CAD, Cancer, CVA, ARF, Chemo, Hep., AIDS, mental health diagnosis, sleep apnea, morbid obesity)? @ -History of similar episodes 3 times previously Was patient admitted / discharged? Hospital course, mention meds given and route, prescriptions, significant lab abnormalities, going to OR and other pert inent info. @ -Patient presents with syncopal episode while outside gardening in warm weather. Patient felt overheated and did have several doses of marijuana. Evaluation unremarkable. Patient feeling better and ambulates well and request discharge home. Undiagnosed new problem with uncertain prognosis? @ -No Drug Therapy requiring intensive monitoring for toxicity (Heparin, Nitro, Insulin, Cardizem)? @ -No Were any procedures done? @ -No Diagnosis/symptom? @ -Syncope Acute, or Chronic, or Acute on Chronic? @ -Acute Uncomplicated (without systemic symptoms) or Complicated (systemic symptoms)? @ -Default Side effects of treatment? @ -No Exacerbation, Progression, or Severe Exacerbation? @ -No Poses a threat to life or bodily function? How? (Chest pain, USA, RI, pneumonia, PE, COPD, DKA, ARF, appy, cholecystitis, CVA, Diverticulitis, Homicidal, Suicidal, threat to staff... and all critical care pts) @ -No - Lab Data Result diagrams: 02/08/24 13:23 02/08/24 13:23 Lab Results 02/08/24 02/08/24 02/08/24 Range/Units 13:23 13:23 13:23 WBC 6.1 (3.8-10.6) k/uL RBC 3.96 (3.80-5.40) m/uL Hgb 12.7 (11.4-16.0) gm/dL Hct 39.6 (34.0-46.0) % MCV 99.9 (80.0-100.0) fL MCH 32.2 (25.0-35.0) pg MCHC 32.2 (31.0-37.0) g/dL RDW 12.7 (11.5-15.5) % Plt Count 212 (150-450) k/uL MPV 8.5 Neutrophils % 55 % Lymphocytes % 30 % Monocytes % 7 % Eosinophils % 7 % Basophils % 1 % Neutrophils # 3.4 (1.3-7.7) k/uL Lymphocytes # 1.8 (1.0-4.8) k/uL Monocytes # 0.4 (0-1.0) k/uL Eosinophils # 0.4 (0-0.7) k/uL Basophils # 0.0 (0-0.2) k/uL PT 10.9 (10.0-12.5) sec INR 1.0 (<1.2) APTT 21.6 L (22.0-30.0) sec Sodium 142 (137-145) mmol/L Potassium 3.9 (3.5-5.1) mmol/L Chloride 115 H (98-107) mmol/L Carbon Dioxide 23 (22-30) mmol/L Anion Gap 4 mmol/L BUN 19 H (7-17) mg/dL Creatinine 0.84 (0.52-1.04) mg/dL Est GFR (CKD-EPI)AfAm 89 (>60 ml/min/1.73 sqM) Est GFR (CKD-EPI)NonAf 77 (>60 ml/min/1.73 sqM) Glucose 97 (74-99) mg/dL Calcium 8.6 (8.4-10.2) mg/dL Magnesium 1.9 (1.6-2.3) mg/dL Total Bilirubin 0.4 (0.2-1.3) mg/dL AST 19 (14-36) U/L ALT 11 (4-34) U/L Alkaline Phosphatase 115 (38-126) U/L Troponin I (0.000-0.034) ng/mL Total Protein 5.4 L (6.3-8.2) g/dL Albumin 3.3 L (3.5-5.0) g/dL 02/08/24 Range/Units 13:23 WBC (3.8-10.6) k/uL RBC (3.80-5.40) m/uL Hgb (11.4-16.0) gm/dL Hct (34.0-46.0) % MCV (80.0-100.0) fL MCH (25.0-35.0) pg MCHC (31.0-37.0) g/dL RDW (11.5-15.5) % Plt Count (150-450) k/uL MPV Neutrophils % % Lymphocytes % % Monocytes % % Eosinophils % % Basophils % % Neutrophils # (1.3-7.7) k/uL Lymphocytes # (1.0-4.8) k/uL Monocytes # (0-1.0) k/uL Eosinophils # (0-0.7) k/uL Basophils # (0-0.2) k/uL PT (10.0-12.5) sec INR (<1.2) APTT (22.0-30.0) sec Sodium (137-145) mmol/L Potassium (3.5-5.1) mmol/L Chloride (98-107) mmol/L Carbon Dioxide (22-30) mmol/L Anion Gap mmol/L BUN (7-17) mg/dL Creatinine (0.52-1.04) mg/dL Est GFR (CKD-EPI)AfAm (>60 ml/min/1.73 sqM) Est GFR (CKD-EPI)NonAf (>60 ml/min/1.73 sqM) Glucose (74-99) mg/dL Calcium (8.4-10.2) mg/dL Magnesium (1.6-2.3) mg/dL Total Bilirubin (0.2-1.3) mg/dL AST (14-36) U/L ALT (4-34) U/L Alkaline Phosphatase (38-126) U/L Troponin I <0.012 (0.000-0.034) ng/mL Total Protein (6.3-8.2) g/dL Albumin (3.5-5.0) g/dL Disposition Clinical Impression: Syncope Disposition: HOME SELF-CARE Condition: Stable Instructions (If sedation given, give patient instructions): Syncope (ED) Additional Instructions: Avoid marijuana. Please do follow-up with primary care physician in the next couple of days for recheck. Return for confusion, headache, visual changes, chest pain or shortness of breath, abdominal or back pain, worsening symptoms, weakness or other concerns. Is patient prescribed a controlled substance at d/c from ED?: No Referrals: Boston Valentine DO [Primary Care Provider] - 1-2 days Time of Disposition: 14:27
[2024-02-08 13:45] LABS: Basophils % (A) 1 %; Eosinophils # (A) 0.4 k/uL (0-0.7); Eosinophils % (A) 7 %; HCT 39.6 % (34.0-46.0); HGB 12.7 gm/dL (11.4-16.0); Lymphocytes # (A) 1.8 k/uL (1.0-4.8); Lymphocytes % (A) 30 %; MCH 32.2 pg (25.0-35.0); MCHC 32.2 g/dL (31.0-37.0); MCV 99.9 fL (80.0-100.0); Mean Platelet Volume 8.5; Monocytes # (A) 0.4 k/uL (0-1.0); Monocytes % (A) 7 %; Neutrophils # (A) 3.4 k/uL (1.3-7.7); Neutrophils % (A) 55 %; Platelet Count 212 k/uL (150-450); RBC 3.96 m/uL (3.80-5.40); RDW 12.7 % (11.5-15.5); WBC 6.1 k/uL (3.8-10.6)
[2024-02-08 13:54] LABS: ALT 11 U/L (4-34); AST 19 U/L (14-36); African American GFR (CKD) 89 (>60 ml/min/1.73 sqM); Albumin 3.3 g/dL (3.5-5.0); Alkaline Phosphatase 115 U/L (38-126); Anion Gap 4 mmol/L; Blood Urea Nitrogen 19 mg/dL (7-17); Calcium 8.6 mg/dL (8.4-10.2); Carbon Dioxide 23 mmol/L (22-30); Chloride 115 mmol/L (98-107); Glucose 97 mg/dL (74-99); Magnesium 1.9 mg/dL (1.6-2.3); Non-African American GFR(CKD) 77 (>60 ml/min/1.73 sqM); Potassium 3.9 mmol/L (3.5-5.1); Sodium 142 mmol/L (137-145); Total Bilirubin 0.4 mg/dL (0.2-1.3); Total Protein 5.4 g/dL (6.3-8.2)
--- NOTE | 2024-02-08 13:54 | XR ---
EXAMINATION TYPE: XR chest 2V DATE OF EXAM: 02/08/2024 1:43 PM CLINICAL INDICATION:Female, 58 years old with history of syncope; [facility] COMPARISON: Chest radiographs from 01/30/2022 TECHNIQUE: XR chest 2V Frontal and lateral views of the chest. FINDINGS: Lungs/Pleura: There is no evidence of pleural effusion, focal consolidation, or pneumothorax. Pulmonary vascularity: Unremarkable. Heart/mediastinum: Cardiomediastinal silhouette is unremarkable. Musculoskeletal: No acute osseous pathology. IMPRESSION: No acute cardiopulmonary disease/process.
[2024-02-08 14:01] VITALS: TEMP 98
[2024-02-08 14:05] LABS: Prothrombin Time 10.9 sec (10.0-12.5)
[2024-02-08 14:07] LABS: Partial Thromboplastin Time 21.6 sec (22.0-30.0)
[2024-02-08 14:51] VITALS: BP 115/70; PULSE 58; RESP 20
== END 2024-02-08 14:36 | disposition home or self-care (01) ==
LOC: EC 13:13
DX: R55 Syncope and collapse (principal); F17.200 Nicotine dependence, unspecified, uncomplicated
CPT/HCPCS: 36415; 71046; 80053; 83735; 84484; 85025; 85610; 85730; 93005; 99285

== ENCOUNTER → 2024-08-11 | Outpatient (CLI) | payer MEDICARE, OTHER ==
--- NOTE | 2024-08-13 09:41 | MM ---
Reason for Exam: Screening (asymptomatic). Last mammogram was performed 6 year(s) and 2 month(s) ago. Patient History: Menarche at age 12. First Full-Term at age 22. Right ovary removed at age 31. Hysterectomy at age 31. Postmenopausal. Endometrial cancer, age 31. Patient used Hormonal Contraceptives for 4 years. 08/25/2018, Benign Core Biopsy on the right side. 07/16/2018, Benign Core Biopsy on the right side. 07/16/2018, High risk Core Biopsy on the right side. Maternal aunt had breast cancer. Maternal aunt had breast cancer. Maternal aunt had breast cancer. Mother had breast cancer. Risk Values: Danica 5 year model risk: 3.8%. NCI Lifetime model risk: 20.5%. Prior Study Comparison: 06/12/2018 Bilateral Screening Mammogram, [facility]. 06/24/2018 Right Diagnostic Mammogram, [facility]. 03/05/2019 Right Diagnostic Mammogram, [facility]. Tissue Density: The breasts are heterogeneously dense, which may obscure small masses. Findings: Analyzed By CAD. Right breast surgical clips and biopsy clip. Right breast: There is no suspicious group of microcalcifications or new suspicious mass. Benign-appearing calcifications right breast. Left breast: There is no suspicious group of microcalcifications or new suspicious mass. Benign-appearing calcifications left breast. Overall Assessment: Benign, BI-RAD 2 Management: Screening Mammogram of both breasts in [address] [facility] will attempt to contact patient to return for supplemental views and ultrasound if indicated. Patient should continue monthly self-breast exams. A clinical breast exam by your physician is recommended on an annual basis. This exam should not preclude additional follow-up of suspicious palpable abnormalities. Note on Danica scores and lifetime risk: 1. A Danica score greater than 3% is considered moderate risk. If this is the case, consider specialist referral to assess eligibility for a risk reducing agent. 2. If overall lifetime risk for the development of breast cancer is 20% or higher, the patient may qualify for future screening with alternating mammogram and breast MRI. [facility], , 08/13/2024 9:37 AM. Electronically signed and approved by: Iker Gabriel DO
== END | disposition home or self-care (01) ==
LOC: RADMAMWWP 14:14
PROVIDERS: ATTEND Family Medicine
DX: Z12.31 Encounter for screening mammogram for malignant neoplasm of breast (principal); Z78.0 Asymptomatic menopausal state; Z80.3 Family history of malignant neoplasm of breast; Z90.721 Acquired absence of ovaries, unilateral; R92.333 Mammographic heterogeneous density, bilateral breasts
CPT/HCPCS: 77063; 77067